=== PATIENT | female | born 1950 | race African-American/Black ===

== ENCOUNTER 2016-12-27 16:58 | Inpatient (IN) ==
--- NOTE | 2016-12-27 17:20 | EKG Report ---
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
[2016-12-27] MEDS ORDERED: ENOXAPARIN 100 MG/ML SYRINGE SUBCUT STA (17:32)
[2016-12-27] MEDS ORDERED: ASPIRIN 325 MG TABLET PO STA (17:32)
[2016-12-27] MEDS ORDERED: NITROGLYCERIN SL 0.4 MG TABLET SL PRN (17:32)
[2016-12-27 17:44] LABS: Basophils % 0.5 % (0.0-0.8); Eosinophils # 0.1 10*3/uL (0.0-0.87); Eosinophils % 1.6 % (0.00-10.9); Hematocrit 41.4 VOL% (35.7-47.0); Hemoglobin 12.9 GM/DL (12.0-16.0); Immature Granulocytes % 0.4 %; Immature Granulocytes Absolute 0.03 #; Lymphocytes # 2.4 10*3/uL (1.4-4.0); Lymphocytes % 30.7 % (21.3-54.2); Mean Corpuscular HGB Conc 31.2 GM/DL (32-36); Mean Corpuscular Hemoglobin 26 PG (27-34); Mean Corpuscular Volume 82.5 FL (87-102); Monocytes # 0.5 10*3/uL (0.11-0.8); Monocytes % 6.6 % (1.7-12.7); Neutrophils # 4.7 10*3/uL (1.4-7.4); Neutrophils % 60.2 % (38.7-73.9); Platelet Count 259 T/CUMM (130-400); Red Blood Count 5.02 MC/CUMM (3.8-5.5); White Blood Count 7.9 T/CUMM (4-12)
[2016-12-27 17:50] LABS: PT Patient Result 10.7 SECS
[2016-12-27] MEDS ORDERED: ASPIRIN 325 MG TABLET ONE (17:51)
[2016-12-27] MEDS ORDERED: ENOXAPARIN 80 MG/0.8 ML SYRINGE SUBCUT ONE (17:51)
--- NOTE | 2016-12-27 18:00 | Emergency Department Note ---
Perla Queen Mantricia, am scribing for, and in the presence of, Pawel Durham MD 17:44. Marva Queen Phillip K, MD, personally performed the services described in this documentation, ascribed by Naveen Duncan in my presence, and it is both accurate and complete . Arrival - Arrival ED Nursing Triage Note: Tightness in chest onset x 3 days Mode of Arrival: Ambulatory Limitations: No Limitations Source: Patient - History of Present Illness Onset (ago): day(s) Consistency: constant Severity: moderate Severity scale (1-10): 3 Date of Last Menstrual Period: hyster <Pawel Durham - Last Filed: 12/27/16 18:00> <Victor Manuel Amos - Last Filed: 12/27/16 19:09> - Arrival Chief Complaint: Chest Pain Stated Complaint: chest pains Time Seen by Provider: 12/27/16 17:31 - History of Present Illness HPI Narrative: Pt is a 66 y/o black female arriving to ED by EMS with c/o tightness in chest that onset 3 days ago. She states that earlier Tuesday she lifted something over 10lbs and very late that night she started having chest pain. She reports taking a Tramadol and has had relief. Pt confirms vomiting Tuesday night but denies N/D. She has a PMHx of DM and states that she takes both the pill and insulin; she denies GA. She reports that she had a cardiac bypass [address] Pereira. 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 She complains of no other symptoms. (Naveen Duncan) Pt is a 66 y/o black female arriving to ED by EMS with c/o tightness in chest that onset 3 days ago. She states that earlier Tuesday she lifted something over 10lbs and very late that night she started having chest pain. She reports taking a Tramadol and has had relief. Pt confirms vomiting Tuesday night but denies N/D. She has a PMHx of DM and states that she takes both the pill and insulin; she denies GA. She reports that she had a cardiac bypass [address] Pereira. 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 Vigil. She complains of no other symptoms. (Pawel Durham) Allergies/Adverse Reactions: Allergies Allergy/AdvReac Type Severity Reaction Status Date / Time citalopram [From Celexa] AdvReac Vomiting Verified 01/21/16 17:11 hydrocodone [From Lortab] AdvReac Vomiting Verified 01/21/16 17:11 ropinirole [From Requip] AdvReac Vomiting Verified 01/21/16 17:11 Home Medications: Home Medications Medication Instructions Recorded Confirmed Type Aspirin [Ecotrin] 325 mg PO DAILY 01/21/16 12/27/16 History Calcium (Citr)/Vit D 200-125 1 tablet PO BID 01/21/16 12/27/16 History [Citracal + D] Furosemide Tab [Lasix Tab] 20 mg PO DAILY PRN 01/21/16 12/27/16 History Magnesium Oxide [Magox 400] 400 mg PO BID 01/21/16 12/27/16 History Pravastatin Sodium 40 mg PO BEDTIME 01/21/16 12/27/16 History glipiZIDE [Glipizide] 10 mg PO DAILY 01/21/16 12/27/16 History metFORMIN [Glucophage] 500 mg PO BID W/MEALS 01/21/16 12/27/16 History Nitroglycerin Sl Tab [Nitrostat] 0.4 mg SL Q5M PRN #25 tablet 01/22/16 12/27/16 Rx Carvedilol 3.125 mg PO BID 03/18/16 12/27/16 History amLODIPine [Norvasc] 10 mg PO DAILY #90 tablet 03/20/16 12/27/16 Rx Acetaminophen Tab [Tylenol Tab] 325 mg PO BID 12/27/16 12/27/16 History Ascorbic Acid [Vitamin C Chew Tab] 1,000 mg PO BID 12/27/16 12/27/16 History Gabapentin 600 mg PO BEDTIME 12/27/16 12/27/16 History Ipratropium/Albuterol Inhaler 1 puff INH BID PRN 12/27/16 12/27/16 History [Combivent Respimat Inhaler] Tramadol HCl [Tramadol Tab] 50 mg PO BID PRN 12/27/16 12/27/16 History Review of System - Review of System 12 point system: reviewed and no additional remarkable complaints except as stated - Review of System Constitutional: Absent: chills, diaphoresis, fever Eyes: Absent: discharge, pain Head/Ears/Nose/Throat: Absent: earache, epistaxis Respiratory: Present: cough. Absent: respiratory distress, wheezing Cardiovascular: Present: chest pain, dyspnea on exertion. Absent: palpitations Gastrointestinal: Present: vomiting. Absent: abdominal pain, nausea, diarrhea Genitourinary female: Absent: abnormal menses, dysuria Musculoskeletal: Absent: arm pain, back pain, leg pain, neck pain Skin: Absent: rash, lesions Neurological: Absent: headache, weakness Psychiatric: Absent: anxiety, depression <Pawel Durham - Last Filed: 12/27/16 18:00> Medical,Surgical,& Family Hx - Medical History Cardio: History of: Cerebrovascular Disease, CAD, Hypertension, Cardiovascular Problems (cad,cabg 2015 at [facility]) No history of: Aneurysm, Cardiac Dysrhythmia, GA, Pacemaker, PVD Psychological: No history of: ADHD, Behavior Problems, Depression, Previous Suicide Attempt , Psychiatric/Substance Abuse Tx, Schizophrenia, Violent Behavior, Psychiatric Problems Neurology: History of: Migraine, Peripheral Neuropathy No history of: Brain Aneurysm, Cerebrovascular Accident, Parkinson's Disease , Seizures, TIA, Vertigo, Neurologocal Cancer HEENT: History of: Eye Problem (glasses), HEENT Problems (SINUS SURGERY) No history of: Ear Problem, Dental Problems Endocrine: History of: Diabetes Mellitus (IDDM), Diabetes Mellitus (NIDDM), Dyslipidemia No history of: Thyroid Disorder, Endocrine Cancer, Endocrine Problems Rheumatology: History of;: Rheumatological Problems No history of;: Rheumatoid Arthritis, Sjogrens, Systemic Lupus Erythematosus Respiratory: History of: Asthma, Bronchitis, Intubation No history of: COPD, Obstructive Sleep Apnea, Pulmonary Hypertension, Pneumonia, Lung Cancer, Respiratory Problems Renal: No history of: Renal Failure Genitourinary: No history of: Bladder Problem, Genitourinary Cancer Gastrointestinal: No history of: Bowel Obstruction, Clostridium Difficile, GERD, Gastrointestinal Bleed, Hepatitis, Liver Problems, Gastrointestinal Cancer Musculoskeletal: No history of: Amputation, Back/Neck Problems, Musculoskeletal Problems Hematology: History of: Anemia No history of: Blood Transfusion Reaction, Clotting Problems, Sickle Cell Disease, Blood Disorders Other: No history of: Cancer, Eczema, HIV, Skin Problems, Miscellaneous Medical Problems - Surgical History Cardiac Surgeries: Sugical HX of: Cardiac Catheterization, Cardiac Surgery ( quadruple bypass in november 2014) Patient Denies: Femoral-Popliteal Bypass Graft, Carotid Endarterectomy, Internal Defibrillator, Vascular Access Devices Thoracic Surgeries: Patient denies;: Kidney (Renal Surgery), Lithotripsy, Nephrectomy, Organ Transplant, Lobectomy Neurologic Surgeries: Patient denies: Brain Aneurysm, Neurologic Surgery HEENT Surgeries: Patient denies: Carotid Endarterectomy, Eye Surgery, Thyroid Surgery, Tonsilectomy & Adenoidectomy Abdominal Surgeries: Surgical HX of: Colonoscopy Patient denies: Abdominal Surgery, Appendectomy, Cholecystectomy, Gastric Bypass Surgery, EGD, Hernia Repair, Splenectomy Reproductive Surgeries: Surgical HX of;: Breast Surgery (rt breast), Gynecologic Surgery (hyst), Hysterectomy Patient denies;: Section, Cystoscopy, Genitourinary Surgery - Family History Family History: Reports;: Family Cancer (MOTHER-LUNG CA), Family Diabetes ( FATHER, SIBLINGS), Family Heart Disease (MOTHER), Family Hypertension (MOTHER) - Social History Smoking Status: Former smoker Frequency of Alcohol Use: None Type of Drug Use: None <Pawel Durham - Last Filed: 12/27/16 18:00> Exam - General General appearance: alert, in no apparent distress - Head Head exam: Present: atraumatic, normocephalic, normal inspection - Eye Eye exam: Present: normal appearance, PERRL, EOMI - ENT ENT exam: Present: normal exam, normal oropharynx, mucous membranes moist, TM's normal bilaterally, normal external ear exam - Neck Neck exam: Present: normal inspection, full ROM, trachea midline. Absent: tenderness - Chest Chest inspection: Present: normal inspection, symmetric chest wall rise. Absent : tenderness - Respiratory Respiratory exam: Present: normal lung sounds bilaterally - Cardiovascular Cardiovascular exam: Present: normal rhythm, tachycardia, normal heart sounds - Abdominal Exam Abdominal exam: Present: soft, normal bowel sounds. Absent: distention, tenderness, guarding, rebound - Extremities Exam Extremities exam: Present: full ROM, normal capillary refill, pedal edema ( trace edema bilat). Absent: tenderness - Back Exam Back exam: Present: normal inspection, full ROM. Absent: tenderness - Neurological Exam Neurological exam: Present: alert, oriented X3, CN II-XII intact, normal gait, reflexes normal - Psychiatric Psychiatric exam: Present: normal affect, normal mood - Skin Skin exam: Present: warm, dry, intact, normal color <Pawel Durham - Last Filed: 12/27/16 18:00> Vital Signs: Vital Signs Temperature 98.2 F 12/27/16 18:11 Pulse Rate 93 H 12/27/16 18:50 Respiratory Rate 19 12/27/16 18:50 Blood Pressure 132/74 12/27/16 18:50 O2 Sat by Pulse Oximetry 100 12/27/16 18:50 Course <Pawel Durham - Last Filed: 12/27/16 18:00> <Victor Manuel Amos - Last Filed: 12/27/16 19:09> Course Narrative: ER course per Dr. Durham (Victor Manuel Amos) - Reevaluation(s) Reevaluation #1: Discussed with patient the fact that she is having daily exertional angina and increasing frequency with a history of recent bypass that she would best be served with hospitalization. (Victor Manuel Amos) - Consultations Consultation #1: Discussed with Dr. Ochoa who will admit for further evaluation treatment for Dr. Vigil. (Victor Manuel Amos) Results <Pawel Durham - Last Filed: 12/27/16 18:00> - Labs CBC & BMP: 12/27/16 17:23 12/27/16 17:23 - Diagnostic Findings Procedure: Chest x-ray: image reviewed by me, report reviewed by me (Status post median sternotomy otherwise normal chest) <Victor Manuel Amos - Last Filed: 12/27/16 19:09> - Labs Labs: I have reviewed the laboratory and noted the normal cardiac's. (Victor Manuel Amos ) - Impressions EKG: Sinus rhythm with normal WA interval and QRS duration. Right atrial enlargement. Old anterior GA. No acute injury pattern noted although suspicious inferior ST's. (Victor Manuel Amos) Disposition <Pawel Durham - Last Filed: 12/27/16 18:00> Case discussed with: patient, patient's family Time of Disposition: 19:09 <Victor Manuel Amos - Last Filed: 12/27/16 19:09> Clinical Impression: Progressive angina, Status post CABG, Diabetes 1.5, managed as type 2, Hyperlipidemia Disposition: Still a Patient Condition: Guarded
[2016-12-27 18:40] LABS: Albumin 3.9 G/DL (3.4-5.0); Bilirubin,Total 0.6 MG/DL (0.2-1.0); Calcium 9.6 MG/DL (8.5-10.1); Magnesium 2.1 MG/DL (1.8-2.4); Osmolality,Calculated 286.5 MOS/KG (273-304); Potassium 4.2 MMOL/L (3.5-5.1); Total Protein 7.5 G/DL (6.4-8.3)
--- NOTE | 2016-12-27 19:08 | XRay Report ---
Referring Physician: Pawel Durham Exam: XR chest 1V portable Date: December 27, 2016 at 5:49 PM Reason: Chest pain Comparison: Chest 2 views January 21, 2016 Findings: There is mild cardiomegaly and sternotomy change. There is minimal atelectasis or scarring at the lung bases. No pneumothorax or pleural effusion is identified. No acute osseous process is seen. Impression: 1. Cardiomegaly. 2. Minimal atelectasis or scarring at the lung bases. PROCEDURE INTERPRETED AT [facility] DEPARTMENT OF RADIOLOGY Final Report Signed by: Dr. Luigi Downey
[2016-12-27] MEDS ORDERED: ONDANSETRON 4 MG/2 ML VIAL IV PRN (19:11)
[2016-12-27] MEDS ORDERED: traMADol 50 MG TABLET PO PRN (19:17)
[2016-12-27] MEDS ORDERED: GLUCAGON 1 MG VIAL IM PRN (20:18)
[2016-12-27] MEDS ORDERED: DEXTROSE 50% 25 GM/50 ML VIAL IV PRN (20:18)
[2016-12-27] MEDS ORDERED: ISOSORBIDE DINITRATE 10 MG TABLET PO SCH (21:00)
[2016-12-27] MEDS ORDERED: PRAVASTATIN 40 MG TABLET PO SCH (21:00)
[2016-12-27] MEDS: INSULIN REGULAR 100 UNIT/ML SUBCUT SCH (21:34)
[2016-12-27] MEDS: ASCORBIC ACID 500 MG TABLET PO SCH (21:36)
[2016-12-27] MEDS: GABAPENTIN 300 MG CAPSULE PO SCH (21:36)
[2016-12-27] MEDS: metFORMIN 500 MG TABLET PO SCH (21:36)
[2016-12-27] MEDS: CARVEDILOL 3.125 MG TABLET PO SCH (21:36)
--- NOTE | 2016-12-28 06:44 | EKG Report ---
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
[2016-12-28] MEDS ORDERED: glipiZIDE 10 MG TABLET PO SCH ×2 (07:30→09:00)
--- NOTE | 2016-12-28 07:56 | EKG Report ---
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
[2016-12-28] MEDS ORDERED: ALBUTEROL/IPRATROPIUM 3 ML NEB RESP TX PRN (08:21)
[2016-12-28] MEDS ORDERED: FUROSEMIDE 20 MG TABLET PO PRN (08:21)
[2016-12-28] MEDS ORDERED: traMADol 50 MG TABLET PO PRN (08:21)
[2016-12-28] MEDS: INSULIN REGULAR 100 UNIT/ML SUBCUT SCH ×2 (08:46→12:57)
--- NOTE | 2016-12-28 08:53 | Cardiology History & Physical ---
<Sanjana May E - Last Filed: 12/28/16 08:24> Assessment and Plan - Time spent with patient Time spent with patient: Greater than 30 minutes (1) Dyslipidemia Status: Chronic Assessment and plan: SEE PLAN OF CARE LISTED BELOW Current Visit: Yes (2) Hx of CABG Status: Chronic Assessment and plan: SEE PLAN OF CARE LISTED BELOW Current Visit: Yes (3) Chest pain Status: Chronic Assessment and plan: SEE PLAN OF CARE LISTED BELOW Current Visit: No (4) CAD (coronary artery disease) Status: Chronic Assessment and plan: SEE PLAN OF CARE LISTED BELOW Current Visit: No (5) Chest wall pain Status: Chronic Assessment and plan: SEE PLAN OF CARE LISTED BELOW Current Visit: No (6) Hypertension Status: Chronic Assessment and plan: SEE PLAN OF CARE LISTED BELOW Current Visit: No Qualifiers: Hypertension type: essential hypertension Qualified Code(s): I10 - Essential (primary) hypertension (7) Diabetes 1.5, managed as type 2 Status: Chronic Assessment and plan: SEE PLAN OF CARE LISTED BELOW Current Visit: Yes History of Present Illness Chief complaint: Chest pain, known coronary artery disease History of present illness: MANAGER SHIFT: DR. VIGIL Ms. Alex, 66BF, routinely followed by Dr. Vigil. She was last seen in cardiology clinic November 30, 2016. Risk factors include: Known coronary artery disease (status post CABG 2014), hypertension, dyslipidemia, diabetes. History of post cardiotomy syndrome, chronic chest wall pain, thoracic aortic aneurysm. Patient presented to the emergency department at [facility] last evening after experiencing left chest pain. Tuesday, patient reports she lifted a heavy laundry basket when she began to experience this aching pain located in the left chest area. It does not radiate, cause shortness of breath, nausea or diaphoresis. This waxed and waned but yesterday began to hurt her more severely when she felt as if she should be evaluated. She received tramadol last evening and the discomfort has resolved. She denies dyspnea on exertion and in fact, reports that walking around last night improved the chest discomfort. Patient has a long-standing history of chest wall pain. She has avoided lifting heavy objects since her CABG because it has aggravated the chest wall. She states she recognized immediately after lifting the heavy laundry basket the discomfort. Cardiac biomarkers are negative, EKG is unremarkable. At this point, she takes Neurontin in the evening. We will make this a 3 times daily dosing for 1 month. Tramadol routinely twice daily for 1 week (not on an "as needed basis" as she takes right now), and Acetaminophen twice daily for one week. I will discuss with Dr. Ochoa this morning. Hopefully, patient will be eligible for discharge this afternoon. She would like to be discharged if possible. ASSESSMENT/PLAN: 1. CHEST PAIN - appears to be musculoskeletal in nature. Easily reproducible to light palpation. See above for plan to address the chest discomfort 2. KNOWN CAD S/P CABG 2014 - we will request records from [place] from prior cardiac catheterization and CABG by Dr. newton 3. HYPERTENSION - usually well controlled. Adjust medications accordingly during hospital stay 4. DYSLIPIDEMIA - continue lipid-lowering agent 5. DIABETES - continue her diabetic medications 6. COSTOCHONDRITIS - see plan of care listed above regarding treatment. 7. HISTORY OF THORACIC AORTIC ANEURYSM -this is listed in her history however I have no additional information regarding ascending versus descending. This is followed by Dr. Vigil. Carotid and radial pulses equal. Home Medications Medication Instructions Recorded Confirmed Type Aspirin [Ecotrin] 325 mg PO DAILY 01/21/16 12/27/16 History Calcium (Citr)/Vit D 200-125 1 tablet PO BID 01/21/16 12/27/16 History [Citracal + D] Furosemide Tab [Lasix Tab] 20 mg PO DAILY PRN 01/21/16 12/27/16 History Magnesium Oxide [Magox 400] 400 mg PO BID 01/21/16 12/27/16 History Pravastatin Sodium 40 mg PO BEDTIME 01/21/16 12/27/16 History glipiZIDE [Glipizide] 10 mg PO DAILY 01/21/16 12/27/16 History metFORMIN [Glucophage] 500 mg PO BID W/MEALS 01/21/16 12/27/16 History Nitroglycerin Sl Tab [Nitrostat] 0.4 mg SL Q5M PRN #25 tablet 01/22/16 12/27/16 Rx Carvedilol 3.125 mg PO BID 03/18/16 12/27/16 History amLODIPine [Norvasc] 10 mg PO DAILY #90 tablet 03/20/16 12/27/16 Rx Acetaminophen Tab [Tylenol Tab] 325 mg PO BID 12/27/16 12/27/16 History Ascorbic Acid [Vitamin C Chew Tab] 1,000 mg PO BID 12/27/16 12/27/16 History Gabapentin 600 mg PO BEDTIME 12/27/16 12/27/16 History Ipratropium/Albuterol Inhaler 1 puff INH BID PRN 12/27/16 12/27/16 History [Combivent Respimat Inhaler] Tramadol HCl [Tramadol Tab] 50 mg PO BID PRN 12/27/16 12/27/16 History Allergies Allergy/AdvReac Type Severity Reaction Status Date / Time citalopram [From Celexa] AdvReac Vomiting Verified 01/21/16 17:11 hydrocodone [From Lortab] AdvReac Vomiting Verified 01/21/16 17:11 ropinirole [From Requip] AdvReac Vomiting Verified 01/21/16 17:11 Review of systems: REVIEW OF SYSTEMS: - Constitutional Constitutional: Denies fatigue. Absent: syncope, anorexia, night sweats - EENT Eyes: Absent: blurry vision, loss of vision, diplopia Ears: Absent: decreased hearing, ear pain, ear discharge - Cardiovascular Cardiovascular: Present: chest pain to palpation. Denies dyspnea on exertion, edema, palpitations. Absent: chest pain with deep breath, claudication - Respiratory Respiratory: Denies: OHARA, cough. Absent: wheezing, hemoptysis, change in phlegm color - Gastrointestinal Gastrointestinal: Denies: constipation. Absent: abdominal pain, hematemesis, hematochezia, melena, change in bowel habits, nausea - Genitourinary Genitourinary: Absent: difficulty urinating, dysuria, urinary hesitancy, flank pain - Musculoskeletal Musculoskeletal: Present: back pain Absent: joint swelling, muscle cramps, muscle weakness - Neurological Neurological: Present: normal gait without frequent falls. Absent: dizziness, hemiparesis - Psychiatric Psychiatric: Absent: anxiety, depression, difficulty concentrating - Endocrine Endocrine: Absent: cold intolerance, heat intolerance, polyuria, polyphagia, polydipsia - Hematologic/Lymphatic Hematologic/Lymphatic: Present: easy bruising. Absent: easy bleeding -Integumentary Integumentary: Absent: lesions, rashes, skin breakdown Medical,Surgical,& Family Hx - Medical History Cardio: History of: Cerebrovascular Disease, CAD, Hypertension, Cardiovascular Problems (cad,cabg 2015 at [place]) No history of: Aneurysm, Cardiac Dysrhythmia, DC, Pacemaker, PVD Psychological: No history of: ADHD, Behavior Problems, Depression, Previous Suicide Attempt , Psychiatric/Substance Abuse Tx, Schizophrenia, Violent Behavior, Psychiatric Problems Neurology: History of: Migraine, Peripheral Neuropathy No history of: Brain Aneurysm, Cerebrovascular Accident, Parkinson's Disease , Seizures, TIA, Vertigo, Neurologocal Cancer HEENT: History of: Eye Problem (glasses), HEENT Problems (SINUS SURGERY) No history of: Ear Problem, Dental Problems Endocrine: History of: Diabetes Mellitus (IDDM), Diabetes Mellitus (NIDDM), Dyslipidemia No history of: Thyroid Disorder, Endocrine Cancer, Endocrine Problems Rheumatology: History of;: Rheumatological Problems No history of;: Rheumatoid Arthritis, Sjogrens, Systemic Lupus Erythematosus Respiratory: History of: Asthma, Bronchitis, Intubation No history of: COPD, Obstructive Sleep Apnea, Pulmonary Hypertension, Pneumonia, Lung Cancer, Respiratory Problems Renal: No history of: Renal Failure Genitourinary: No history of: Bladder Problem, Genitourinary Cancer Gastrointestinal: No history of: Bowel Obstruction, Clostridium Difficile, GERD, Gastrointestinal Bleed, Hepatitis, Liver Problems, Gastrointestinal Cancer Musculoskeletal: No history of: Amputation, Back/Neck Problems, Musculoskeletal Problems Hematology: History of: Anemia No history of: Blood Transfusion Reaction, Clotting Problems, Sickle Cell Disease, Blood Disorders Other: No history of: Cancer, Eczema, HIV, Skin Problems, Miscellaneous Medical Problems - Surgical History Cardiac Surgeries: Sugical HX of: Cardiac Catheterization, Cardiac Surgery ( quadruple bypass in november 2014) Patient Denies: Femoral-Popliteal Bypass Graft, Carotid Endarterectomy, Internal Defibrillator, Vascular Access Devices Thoracic Surgeries: Patient denies;: Kidney (Renal Surgery), Lithotripsy, Nephrectomy, Organ Transplant, Lobectomy Neurologic Surgeries: Patient denies: Brain Aneurysm, Neurologic Surgery HEENT Surgeries: Patient denies: Carotid Endarterectomy, Eye Surgery, Thyroid Surgery, Tonsilectomy & Adenoidectomy Abdominal Surgeries: Surgical HX of: Colonoscopy Patient denies: Abdominal Surgery, Appendectomy, Cholecystectomy, Gastric Bypass Surgery, EGD, Hernia Repair, Splenectomy Reproductive Surgeries: Surgical HX of;: Breast Surgery (rt breast), Gynecologic Surgery (hyst), Hysterectomy Patient denies;: Section, Cystoscopy, Genitourinary Surgery - Family History Family History: Reports;: Family Cancer (MOTHER-LUNG CA), Family Diabetes ( FATHER, SIBLINGS), Family Heart Disease (MOTHER), Family Hypertension (MOTHER) - Social History Smoking Status: Former smoker Have you smoked in the last 12 months: No Frequency of Alcohol Use: None Type of Drug Use: None Marital Status: Lives With:: Spouse Functional capacity: independent ambulation Cardiology Physical Exam - Constitutional Vitals: Vital Signs Temp Pulse Resp BP Pulse Ox 97.5 F L 81 18 112/68 95 12/28/16 07:30 12/28/16 07:30 12/28/16 07:30 12/28/16 07:30 12/28/16 07:30 Intake and Output 12/27/16 12/28/16 12/28/16 23:59 07:59 15:59 Intake Total 240 / 240 0 / 0 Balance 240 / 240 0 / 0 Intake: Oral 240 / 240 0 / 0 Other: Voiding Method Toilet Toilet # Voids 1 2 Weight 70.307 kg 69.031 kg Patient Weight 12/28/16 23:59 Weight 69.031 kg General: [Appears well with no apparent distress.] [Pleasant and cooperative. ] [Appears comfortable.] HEENT: [PERRL, normocephalic, atraumatic. Mucous membranes moist. No jaundice noted. Conjunctiva moist and clear, sclerae anicteric] Neck: No JVD/HJR, no thyromegaly or lymphadenopathy noted. No carotid bruit appreciated Cardiac: [Regular rate and rhythm.] [No murmur, rub or gallop.] Left chest area tender to palpation. Lungs: [Clear to auscultation without accessory muscle use to assist the respiratory pattern.] Not requiring oxygen Abdomen: Soft, bowel sounds normoactive. Nontender and nondistended. No abdominal bruit or thrill noted. No masses noted. Musculoskeletal: No fluid collection. Decreased range of motion is noted. Extremities: No clubbing, cyanosis noted. [ No edema noted.] Upper extremity pulses 2+. Lower extremity pulses 2+. Capillary refill less than 3 seconds. Skin: No unusual lesions or rashes. No skin breakdown appreciated. Neuro: Awake, alert and oriented 3. Moves all extremities well without hemiparesis or paralysis. No essential tremor is appreciated. Result/EKG - Labs CBC & BMP: 12/27/16 17:23 12/27/16 17:23 Lab Results: I have reviewed the past 24 hour labs Labs: Laboratory Results - last 24 hr 12/27/16 12/27/16 12/28/16 21:02 23:56 07:13 POC Glucose 199 H Troponin I < 0.015 < 0.015 - Diagnostic Findings Procedure: Chest x-ray: report reviewed by me - EKG EKG results: interpreted by me EKG shows: sinus rhythm <Geovani Ochoa - Last Filed: 12/28/16 10:24> History of Present Illness History of present illness: Patient personally reviewed and examined by myself and chart reviewed. I discussed the case with Sanjana May NP. I agree with the assessment and evaluation and examination. In addition and summation Ms. Alex is a 66 year old female who has known coronary disease having bypass surgery previously. She has chronic recurrent chest wall pain. She presents having several days of chest pain specifically since this past Tuesday. Tuesday she was lifting some heavy furniture which she typically does not do an avoided secondary to precipitating chest wall pain. Tuesday she began having chest wall pain is really been persistent. She presented the emergency room with this pain and discomfort having chest wall tenderness, which is chronic. Her ECG was normal without any evidence of ischemic changes, her troponin has been completely normal and nondetectable. She is having no pain since receiving pain medications. She usually takes tramadol at home but has not used nitroglycerin for this pain when it develops. Evaluation does not reveal any evidence for an ischemic event. Agree with this patient's findings were typical for her chest wall pain and not ischemic in needs no further evaluation. Be discharged. Cardiology Physical Exam - Constitutional Vitals: Vital Signs Temp Pulse Resp BP Pulse Ox 97.5 F L 81 18 112/68 95 12/28/16 07:30 12/28/16 07:30 12/28/16 07:30 12/28/16 07:30 12/28/16 07:30 Intake and Output 12/27/16 12/28/16 12/28/16 23:59 07:59 15:59 Intake Total 240 / 240 0 / 0 Balance 240 / 240 0 / 0 Intake: Oral 240 / 240 0 / 0 Other: Voiding Method Toilet Toilet # Voids 1 2 Weight 70.307 kg 69.031 kg Patient Weight 12/28/16 23:59 Weight 69.031 kg Exam: I agree with the examination.. She has no pathology noted on her examination. The has chest wall tenderness that reproduces her chest pain. Result/EKG - Labs CBC & BMP: 12/27/16 17:23 12/27/16 17:23 Labs: Laboratory Results - last 24 hr 12/27/16 12/27/16 12/28/16 21:02 23:56 07:13 POC Glucose 199 H Troponin I < 0.015 < 0.015
[2016-12-28] MEDS ORDERED: PANTOPRAZOLE 40 MG TABLET PO SCH (09:00)
[2016-12-28] MEDS ORDERED: ASPIRIN 325 MG TABLET PO SCH (09:00)
[2016-12-28] MEDS ORDERED: amLODIPine 10 MG TABLET PO SCH (09:00)
[2016-12-28] MEDS ORDERED: MAGNESIUM OXIDE 400 MG TABLET PO SCH (09:00)
[2016-12-28] MEDS ORDERED: traMADol 50 MG TABLET PO SCH (09:00)
[2016-12-28] MEDS ORDERED: ASCORBIC ACID 500 MG TABLET PO SCH (09:00)
[2016-12-28] MEDS ORDERED: CALCIUM (CITRATE)/VITAMIN D 200 MG-125 UNIT TABLET PO SCH (09:00)
[2016-12-28] MEDS ORDERED: CARVEDILOL 6.25 MG TABLET PO SCH (09:00)
[2016-12-28] MEDS ORDERED: FUROSEMIDE 20 MG TABLET PO SCH (09:00)
[2016-12-28] MEDS ORDERED: ACETAMINOPHEN 325 MG TABLET PO SCH (09:00)
[2016-12-28] MEDS ORDERED: ASPIRIN EC 325 MG TABLET PO SCH (09:00)
[2016-12-28] MEDS: metFORMIN 500 MG TABLET PO SCH (09:24)
[2016-12-28] MEDS: ASCORBIC ACID 500 MG TABLET PO SCH (09:27)
[2016-12-28] MEDS: CARVEDILOL 3.125 MG TABLET PO SCH (09:30)
[2016-12-28] MEDS: GABAPENTIN 300 MG CAPSULE PO SCH (09:30)
--- NOTE | 2016-12-28 11:07 | Discharge Summary ---
<Sanjana May E - Last Filed: 12/28/16 11:08> Hospital Course - Hospital Course Hospital Course: DRUG CLERK: DR. VIGIL Ms. Alex, 66BF, routinely followed by Dr. Vigil. She was last seen in cardiology clinic November 30, 2016. Risk factors include: Known coronary artery disease (status post CABG 2014), hypertension, dyslipidemia, diabetes. History of post cardiotomy syndrome, chronic chest wall pain, thoracic aortic aneurysm. Patient presented [facility] the emergency [facility] at [facility] December 27, 2016 with chest pain after lifting heavy basket of laundry. Chest pain was reproducible to palpation left chest area. Walking improved the discomfort. Tramadol relieved the discomfort. CIEs negative. EKG was unremarkable. After being seen and evaluated, patient was anxious for release home. She is being discharged home in stable condition. She will resume all of her preadmission medications. New medications will include the following: Acetaminophen 325 mg's orally twice daily 1 week Tramadol 50 mg orally twice daily 1 week Neurontin 100 mg orally 3 times daily until seen by Dr. Vigil. Neurontin 600 mg orally each evening has been discontinued. She is being given a follow-up appointment with Dr. Vigil in approximately 6 weeks. May want to consider pain management referral if chest pain continues. SHE WILL CONTINUE ECASA 325MG ORALLY DAILY - Time spent with patient Time with patient DS: Greater than 30 minutes Diagnosis - Discharge Diagnosis (1) Dyslipidemia Status: Chronic (2) Hx of CABG Status: Chronic (3) Chest pain Status: Chronic (4) CAD (coronary artery disease) Status: Chronic (5) Chest wall pain Status: Chronic (6) Hypertension Status: Chronic (7) Diabetes 1.5, managed as type 2 Status: Chronic Specialty Discharge - Follow Up or Referrals Follow up with: Stan Vigil MD [Physician] - 02/08/17 9:00 am (6 weeks. ) Discharge Plan - Discharge Data Disposition: Disch To Home/Self Care Condition at Discharge: Stable Discharge Diet: heart healthy Activity: resume usual activities as tolerated Hygiene: no restrictions Weight Bearing at Discharge: full weight bearing Driving: no restrictions Contact your physician if you experience:: fever over 101, Difficulty voiding, Redness or swelling, Nausea/Vomiting, Shortness of breath, Bleeding, pain uncontrolled by pain medications - Discharge Medications New [place]apentin Cap/Tab [Neurontin Cap/Tab] 300 mg PO TID #84 capsule Continue Calcium (Citr)/Vit D 200-125 [Citracal + D] 1 tablet PO BID glipiZIDE [Glipizide] 10 mg PO DAILY Pravastatin Sodium 40 mg PO BEDTIME metFORMIN [Glucophage] 500 mg PO BID W/MEALS Magnesium Oxide [Magox 400] 400 mg PO BID Furosemide Tab [Lasix Tab] 20 mg PO DAILY PRN PRN Reason: CHF Nitroglycerin Sl Tab [Nitrostat] 0.4 mg SL Q5M PRN #25 tablet PRN Reason: Chest Pain Carvedilol 3.125 mg PO BID amLODIPine [Norvasc] 10 mg PO DAILY #90 tablet Ipratropium/Albuterol Inhaler [Combivent Respimat Inhaler] 1 puff INH BID PRN PRN Reason: Shortness Of Breath Acetaminophen Tab [Tylenol Tab] 325 mg PO BID #14 bottle Ascorbic Acid [Vitamin C Chew Tab] 1,000 mg PO BID Tramadol HCl [Tramadol Tab] 50 mg PO BID PRN PRN Reason: Pain Discontinued Aspirin [Ecotrin] 325 mg PO DAILY Gabapentin 600 mg PO BEDTIME No Action Aspirin EC Tab 325 mg PO DAILY - Follow Up or Referral Follow Up: Stan Vigil MD [Physician] - 02/08/17 9:00 am (6 weeks. ) - Forms/Instructions Additional Discharge Instructions: Please have patient continue the ECASA 325MG ORALLY DAILY ( I accidentally discontinued but she DOES need to continue). THanks Exam - Constitutional Vitals: Period Temp Pulse Resp BP Sys/Giron Pulse Ox Last 24 Hr 97.4 F-98.4 F 79-98 18-22 112-154/63-89 94-100 Exam: General: [Appears well with no apparent distress.] [Pleasant and cooperative. ] [Appears comfortable.] HEENT: [PERRL, normocephalic, atraumatic. Mucous membranes moist. No jaundice noted. Conjunctiva moist and clear, sclerae anicteric] Neck: No JVD/HJR, no thyromegaly or lymphadenopathy noted. No carotid bruit appreciated Cardiac: [Regular rate and rhythm.] [No murmur rub or gallop.] Left chest tender to palpation. Lungs: [Clear to auscultation without accessory muscle use to assist the respiratory pattern.] Not requiring oxygen Abdomen: Soft, bowel sounds normoactive. Nontender and nondistended. No abdominal bruit or thrill noted. No masses noted. Musculoskeletal: No fluid collection. Decreased range of motion is noted. Extremities: No clubbing, cyanosis noted. [ No edema noted.] Upper extremity pulses 2+. Lower extremity pulses 2+. Capillary refill less than 3 seconds. Skin: No unusual lesions or rashes. No skin breakdown appreciated. Neuro: Awake, alert and oriented 3. Moves all extremities well without hemiparesis or paralysis. No essential tremor is appreciated. Discharge Results Labs on day of discharge: Labs from last 24 hours 12/28/16 12/28/16 12/27/16 11:23 07:13 23:56 POC Glucose 239 H 199 H Troponin I < 0.015 12/27/16 21:02 POC Glucose Troponin I < 0.015 - Imaging and Cardiology Procedure: Chest x-ray: report reviewed by me DS: Provider Date of admission: 12/27/16 19:09 Primary care physician: Luis Antonio Amin DO Attending physician on admission: Stan Vigil MD Discharging clinician: Sanjana May NP Expected date of discharge: 12/28/16 <Geovani Ochoa - Last Filed: 12/28/16 15:16> Hospital Course - Hospital Course Hospital Course: The patient again interviewed and examined he has noncardiac chest pain. Her cardiac enzymes are negative is noted. No further cardiac evaluation needed. She will be discharged follow-up as a outpatient with Dr. Stan Vigil.
[2016-12-28 11:40] VITALS: BP 129/65
[2016-12-28] MEDS ORDERED: metFORMIN 500 MG TABLET PO SCH (17:00)
[2016-12-28] MEDS ORDERED: PRAVASTATIN 40 MG TABLET PO SCH (21:00)
[2016-12-28] MEDS ORDERED: GABAPENTIN 300 MG CAPSULE PO SCH (21:00)
== END 2016-12-28 12:59 | disposition home or self-care (01) | DRG 313 ==
LOC: N.ED 16:58 → N.EDINP 19:09 → N.TELES 19:09
PROVIDERS: ADMIT Internal Medicine Cardiovascular Disease; ATTEND Internal Medicine Cardiovascular Disease

== ENCOUNTER 2017-02-14 11:03 | Inpatient (IN) ==
[2017-02-14] MEDS ORDERED: ONDANSETRON 4 MG/2 ML VIAL IV PRN (11:25)
[2017-02-14 12:36] LABS: Basophils % 0.1 % (0.0-0.8); Eosinophils # 0.1 10*3/uL (0.0-0.87); Eosinophils % 0.3 % (0.00-10.9); Hemoglobin 13.2 GM/DL (12.0-16.0); Immature Granulocytes % 1.6 %; Immature Granulocytes Absolute 0.25 #; Lymphocytes # 3.2 10*3/uL (1.4-4.0); Lymphocytes % 20.5 % (21.3-54.2); Mean Corpuscular HGB Conc 32.2 GM/DL (32-36); Mean Corpuscular Hemoglobin 26 PG (27-34); Mean Corpuscular Volume 80.6 FL (87-102); Mean Platelet Volume 9.4 FL (9.6-12.0); Monocytes # 1.1 10*3/uL (0.11-0.8); Neutrophils # 10.8 10*3/uL (1.4-7.4); Neutrophils % 70.5 % (38.7-73.9); Platelet Count 374 T/CUMM (130-400); Red Blood Count 5.09 MC/CUMM (3.8-5.5); Red Cell Distribution Width 13.9 % (9.3-17.3); White Blood Count 15.4 T/CUMM (4-12)
[2017-02-14] MEDS ORDERED: methylPREDNISolone SOD SUC 40 MG/1 ML VIAL IM SCH (13:00)
[2017-02-14] MEDS ORDERED: methylPREDNISolone SOD SUC 40 MG/1 ML VIAL IV SCH (13:00)
[2017-02-14 13:05] LABS: Albumin 3.5 G/DL (3.4-5.0); Bilirubin,Total 0.8 MG/DL (0.2-1.0); Calcium 9.4 MG/DL (8.5-10.1); Magnesium 2.4 MG/DL (1.8-2.4); Osmolality,Calculated 285.4 MOS/KG (273-304); Potassium 4.3 MMOL/L (3.5-5.1); Total Protein 7.1 G/DL (6.4-8.3)
[2017-02-14] MEDS ORDERED: NITROGLYCERIN SL 0.4 MG TABLET SL PRN (13:33)
[2017-02-14] MEDS: SODIUM CHLORIDE 0.45% 1,000 ML IV SCH ×2 (14:15→23:28)
[2017-02-14] MEDS: LEVOFLOXACIN INJ 500 MG in PREMIX 1 EACH IV SCH (14:15)
[2017-02-14] MEDS: ALBUTEROL/IPRATROPIUM 3 ML NEB RESP TX SCH ×2 (14:16→19:00)
[2017-02-14] MEDS: methylPREDNISolone SOD SUC 40 MG/1 ML VIAL IV SCH ×2 (14:26→23:30)
--- NOTE | 2017-02-14 15:57 | XRay Report ---
XR chest 2V Date: 02/14/2017 11:33 AM History: Shortness of breath Comparison: 12/27/2016 Technique: PA and lateral chest Findings: The heart is smaller in size in patient with prior median sternotomy. Chronic scarring in the lungs with minimally progressive atelectasis. Stable mediastinum with degenerative changes. Impression: COPD with chronic scarring in patient with prior median sternotomy. Progressive atelectasis. PROCEDURE INTERPRETED AT [facility] DEPARTMENT OF RADIOLOGY Final Report Signed by: Dr. Briana Villegas
[2017-02-14] MEDS: CARVEDILOL 3.125 MG TABLET PO SCH ×2 (16:07→21:05)
[2017-02-14] MEDS: amLODIPine 10 MG TABLET PO SCH (16:07)
[2017-02-14] MEDS: GABAPENTIN 300 MG CAPSULE PO SCH ×2 (16:07→21:05)
[2017-02-14] MEDS: glipiZIDE 10 MG TABLET PO SCH (16:07)
[2017-02-14] MEDS: CALCIUM (CITRATE)/VITAMIN D 200 MG-125 UNIT TABLET PO SCH ×2 (16:07→21:04)
[2017-02-14] MEDS: INSULIN LISPRO 100 UNIT/ML SUBCUT SCH ×2 (17:26→23:41)
[2017-02-14] MEDS: metFORMIN 500 MG TABLET PO SCH (17:26)
--- NOTE | 2017-02-14 18:17 | Family Practice History&Phys ---
Assessment and Plan (1) exacerbation of COPD Status: Acute Assessment and plan: Patient has failed outpatient therapy. Will admit for aggressive evaluation and treatment Current Visit: Yes (2) type 2 diabetes mellitus Status: Chronic Assessment and plan: Stable on present medications. We'll start on sliding scale Current Visit: Yes (3) Hx of CABG Status: Chronic Assessment and plan: Stable on present medications Current Visit: No (4) CAD (coronary artery disease) Status: Chronic Assessment and plan: Stable on present medications Current Visit: No (5) Dyslipidemia Status: Chronic Assessment and plan: Stable on present treatment plan Current Visit: No (6) Hypertension Status: Chronic Assessment and plan: Stable on present treatment plan Current Visit: No Qualifiers: Hypertension type: essential hypertension Qualified Code(s): I10 - Essential (primary) hypertension (7) polyneuropathy Status: Chronic Assessment and plan: Stable at present Current Visit: Yes History of Present Illness Chief complaint: progressive dyspnea History of present illness: Ms. Alex is a 66 year old female Patient is a 66-year-old black female known to me who is at a 7-10 day history of progressive cough and congestion fever or wheezing and shortness of breath. She was seen by me last week and started on multiple meds with no improvement. Patient unable to sleep eat or rest at present. Patient is on multiple medications for bronchospasm. Symptoms have progressively gotten worse. Patient seen in clinic and noted to be short of breath. She had decreased breath sounds with wheezing in all lung silvestre. In view of history will admit for further evaluation and therapy Home Medications Medication Instructions Recorded Confirmed Type Calcium (Citr)/Vit D 200-125 1 tablet PO BID 01/21/16 02/14/17 History [Citracal + D] Furosemide Tab [Lasix Tab] 20 mg PO DAILY PRN 01/21/16 02/14/17 History Magnesium Oxide [Magox 400] 400 mg PO BID 01/21/16 02/14/17 History Pravastatin Sodium 40 mg PO BEDTIME 01/21/16 02/14/17 History glipiZIDE [Glipizide] 10 mg PO DAILY 01/21/16 02/14/17 History metFORMIN [Glucophage] 500 mg PO BID W/MEALS 01/21/16 02/14/17 History Nitroglycerin Sl Tab [Nitrostat] 0.4 mg SL Q5M PRN #25 tablet 01/22/16 02/14/17 Rx Carvedilol 3.125 mg PO BID 03/18/16 02/14/17 History amLODIPine [Norvasc] 10 mg PO DAILY #90 tablet 03/20/16 02/14/17 Rx Ascorbic Acid [Vitamin C Chew Tab] 1,000 mg PO BID 12/27/16 02/14/17 History Ipratropium/Albuterol Inhaler 1 puff INH BID PRN 12/27/16 02/14/17 History [Combivent Respimat Inhaler] Tramadol HCl [Tramadol Tab] 50 mg PO BID PRN 12/27/16 02/14/17 History Acetaminophen Tab [Tylenol Tab] 325 mg PO BID #14 bottle 12/28/16 02/14/17 Rx Aspirin EC Tab 325 mg PO DAILY 12/28/16 02/14/17 History Gabapentin 300 mg PO TID 02/14/17 02/14/17 History Allergies Allergy/AdvReac Type Severity Reaction Status Date / Time citalopram [From Celexa] AdvReac Vomiting Verified 01/21/16 17:11 hydrocodone [From Lortab] AdvReac Vomiting Verified 01/21/16 17:11 ropinirole [From Requip] AdvReac Vomiting Verified 01/21/16 17:11 Medical,Surgical,& Family Hx - Medical History Cardio: History of: Cerebrovascular Disease, CAD, Hypertension, Cardiovascular Problems (cad,cabg 2015 at [facility]) No history of: Aneurysm, Cardiac Dysrhythmia, [place], Pacemaker, PVD Psychological: No history of: ADHD, Behavior Problems, Depression, Previous Suicide Attempt , Psychiatric/Substance Abuse Tx, Schizophrenia, Violent Behavior, Psychiatric Problems Neurology: History of: Migraine, Peripheral Neuropathy No history of: Brain Aneurysm, Cerebrovascular Accident, Parkinson's Disease , Seizures, TIA, Vertigo, Neurologocal Cancer HEENT: History of: Eye Problem (glasses), HEENT Problems (SINUS SURGERY) No history of: Ear Problem, Dental Problems Endocrine: History of: Diabetes Mellitus (NIDDM), Dyslipidemia No history of: Diabetes Mellitus (IDDM), Thyroid Disorder, Endocrine Cancer, Endocrine Problems Rheumatology: History of;: Rheumatological Problems No history of;: Rheumatoid Arthritis, Sjogrens, Systemic Lupus Erythematosus Respiratory: History of: Bronchitis, COPD No history of: Asthma, Intubation, Obstructive Sleep Apnea, Pulmonary Hypertension, Pneumonia, Lung Cancer, Respiratory Problems Renal: No history of: Renal Failure Genitourinary: No history of: Bladder Problem, Genitourinary Cancer Gastrointestinal: No history of: Bowel Obstruction, Clostridium Difficile, GERD, Gastrointestinal Bleed, Hepatitis, Liver Problems, Gastrointestinal Cancer Musculoskeletal: No history of: Amputation, Back/Neck Problems, Musculoskeletal Problems Hematology: History of: Anemia No history of: Blood Transfusion Reaction, Clotting Problems, Sickle Cell Disease, Blood Disorders Other: No history of: Cancer, Eczema, HIV, Skin Problems, Miscellaneous Medical Problems - Surgical History Cardiac Surgeries: Sugical HX of: Cardiac Catheterization, Cardiac Surgery ( quadruple bypass in november 2014) Patient Denies: Femoral-Popliteal Bypass Graft, Carotid Endarterectomy, Internal Defibrillator, Vascular Access Devices Thoracic Surgeries: Patient denies;: Kidney (Renal Surgery), Lithotripsy, Nephrectomy, Organ Transplant, Lobectomy Neurologic Surgeries: Patient denies: Brain Aneurysm, Neurologic Surgery HEENT Surgeries: Patient denies: Carotid Endarterectomy, Eye Surgery, Thyroid Surgery, Tonsilectomy & Adenoidectomy Abdominal Surgeries: Surgical HX of: Colonoscopy Patient denies: Abdominal Surgery, Appendectomy, Cholecystectomy, Gastric Bypass Surgery, EGD, Hernia Repair, Splenectomy Reproductive Surgeries: Surgical HX of;: Breast Surgery (rt breast), Gynecologic Surgery (hyst), Hysterectomy Patient denies;: Section, Cystoscopy, Genitourinary Surgery Orthopedic Surgeries: Surgical HX of;: Orthopedic Surgery (arthroscopic knee surgery) - Family History Family History: Reports;: Family Cancer (MOTHER-LUNG CA), Family Heart Disease ( MOTHER), Family Hypertension (MOTHER) Denies;: Family Diabetes - Social History Smoking Status: Former smoker Have you smoked in the last 12 months: No Frequency of Alcohol Use: None Type of Drug Use: None Marital Status: Lives With:: Spouse Functional capacity: independent ambulation Exam - Constitutional Vitals: Period Temp Pulse Resp BP Sys/Giron Pulse Ox Last 24 Hr 97.3 F-98.3 F 86-92 17-20 130-133/68-73 95-97 - Head Head exam: Present: normal inspection - Eye Pupils: Present: TORI - ENT ENT exam: Present: normal exam - Neck Neck exam: Present: normal inspection - Respiratory Respiratory exam: Present: decreased breath sounds, wheezes - Cardiovascular Cardiovascular exam: Present: tachycardia - GI/Abdominal GI/Abdominal exam: Present: normal bowel sounds, soft - Extremities Exam Extremities exam: Present: normal inspection - Back Exam Back exam: Present: normal inspection - Neurological Exam Neurological exam: Present: alert, oriented X3 - Psychiatric Psychiatric exam: Present: normal affect - Skin Skin exam: Present: normal color Results - Labs CBC & BMP: 02/14/17 12:13 02/14/17 12:13
[2017-02-14 18:36] LABS: Apearance,Urine CLEAR (Clear); Bilirubin,Urine Negative (Negative); Blood, Urine Negative (Negative); Glucose,Urine (UA) Negative (Negative); Ketones,Urine 20 mg/dL (Negative); Mucus,Urine Occasional /LPF (Occasional); Nitrite,Urine Negative (Negative); Protein,Urine Negative; RBC,Urine 4 /HPF (0-4); Squamous Epithelial Cell,Urine Occasional /HPF (0-10); Urine Color Yellow (Yellow); Urine Specific Gravity 1.018 (1.001-1.035); Urine Urobilinogen < 2.0 EU/DL (0.2-1.0); WBC,Urine 1 /HPF (0-6)
[2017-02-14] MEDS: ASCORBIC ACID 500 MG TABLET PO SCH (21:04)
[2017-02-14] MEDS: MAGNESIUM OXIDE 400 MG TABLET PO SCH (21:04)
[2017-02-14] MEDS: PRAVASTATIN 40 MG TABLET PO SCH (21:05)
[2017-02-14] MEDS: DOCUSATE SODIUM 100 MG CAPSULE PO SCH (21:06)
[2017-02-14] MEDS: traMADol 50 MG TABLET PO PRN (23:32)
[2017-02-15] MEDS: ALBUTEROL/IPRATROPIUM 3 ML NEB RESP TX SCH ×6 (00:40→18:52)
[2017-02-15 05:14] LABS: Hematocrit 34.8 VOL% (35.7-47.0); Hemoglobin 11.3 GM/DL (12.0-16.0); White Blood Count 14.8 T/CUMM (4-12)
[2017-02-15 05:15] LABS: Basophils % 0.1 % (0.0-0.8); Immature Granulocytes % 1.2 %; Immature Granulocytes Absolute 0.17 #; Lymphocytes # 1.4 10*3/uL (1.4-4.0); Lymphocytes % 9.3 % (21.3-54.2); Mean Corpuscular HGB Conc 32.5 GM/DL (32-36); Mean Corpuscular Hemoglobin 26 PG (27-34); Mean Corpuscular Volume 80.9 FL (87-102); Mean Platelet Volume 9.6 FL (9.6-12.0); Monocytes # 0.2 10*3/uL (0.11-0.8); Monocytes % 1.6 % (1.7-12.7); Neutrophils % 87.8 % (38.7-73.9); Platelet Count 330 T/CUMM (130-400); Red Cell Distribution Width 13.6 % (9.3-17.3)
[2017-02-15 05:49] LABS: Calcium 8.8 MG/DL (8.5-10.1); Osmolality,Calculated 286.1 MOS/KG (273-304); Potassium 4.2 MMOL/L (3.5-5.1)
[2017-02-15 06:11] LABS: Risk Ratio 2.03
[2017-02-15] MEDS: SODIUM CHLORIDE 0.45% 1,000 ML IV SCH ×2 (07:27→17:40)
--- NOTE | 2017-02-15 07:51 | Family Practice Progress Note ---
Family Practice - PN: Subj Interval history: Patient states that she rested better still has moderate cough and dyspnea but definitely is improved. Is much less wheezing with good airflow in the lungs bilaterally. Labs are stable except blood sugars have been elevated from steroids. Have changed sliding scale to a higher level. Denies any other associated complaints. Remainder of physical exam is stable. We will continue present treatment plan Exam (Progress Note) - Constitutional Vitals: Period Temp Pulse Resp BP Sys/Giron Pulse Ox Last 24 Hr 97.1 F-98.3 F 81-92 17-20 124-133/66-73 95-100 Results - Labs CBC & BMP: 02/15/17 04:21 02/15/17 04:21 Assessment and Plan (1) exacerbation of COPD Status: Acute Assessment and plan: Patient has failed outpatient therapy. Will admit for aggressive evaluation and treatment Current Visit: Yes (2) type 2 diabetes mellitus Status: Chronic Assessment and plan: Stable on present medications. We'll start on sliding scale Current Visit: Yes (3) Hx of CABG Status: Chronic Assessment and plan: Stable on present medications Current Visit: No (4) CAD (coronary artery disease) Status: Chronic Assessment and plan: Stable on present medications Current Visit: No (5) Dyslipidemia Status: Chronic Assessment and plan: Stable on present treatment plan Current Visit: No (6) Hypertension Status: Chronic Assessment and plan: Stable on present treatment plan Current Visit: No Qualifiers: Hypertension type: essential hypertension Qualified Code(s): I10 - Essential (primary) hypertension (7) polyneuropathy Status: Chronic Assessment and plan: Stable at present Current Visit: Yes
[2017-02-15] MEDS: methylPREDNISolone SOD SUC 40 MG/1 ML VIAL IV SCH ×2 (10:21→17:42)
[2017-02-15] MEDS: LEVOFLOXACIN INJ 500 MG in PREMIX 1 EACH IV SCH (10:21)
[2017-02-15] MEDS: CALCIUM (CITRATE)/VITAMIN D 200 MG-125 UNIT TABLET PO SCH ×2 (10:22→21:48)
[2017-02-15] MEDS: amLODIPine 10 MG TABLET PO SCH (10:22)
[2017-02-15] MEDS: ASCORBIC ACID 500 MG TABLET PO SCH ×2 (10:22→21:48)
[2017-02-15] MEDS: MAGNESIUM OXIDE 400 MG TABLET PO SCH ×2 (10:22→21:49)
[2017-02-15] MEDS: glipiZIDE 10 MG TABLET PO SCH (10:22)
[2017-02-15] MEDS: metFORMIN 500 MG TABLET PO SCH ×2 (10:23→17:38)
[2017-02-15] MEDS: DOCUSATE SODIUM 100 MG CAPSULE PO SCH ×2 (10:23→21:48)
[2017-02-15] MEDS: GABAPENTIN 300 MG CAPSULE PO SCH ×3 (10:23→21:49)
[2017-02-15] MEDS: ASPIRIN EC 325 MG TABLET PO SCH (10:23)
[2017-02-15] MEDS: INSULIN LISPRO 100 UNIT/ML SUBCUT SCH ×4 (10:23→21:57)
[2017-02-15] MEDS: PANTOPRAZOLE 40 MG TABLET PO SCH (10:23)
[2017-02-15] MEDS: CARVEDILOL 3.125 MG TABLET PO SCH ×2 (10:23→21:49)
[2017-02-15] MEDS: traMADol 50 MG TABLET PO PRN (17:37)
[2017-02-15] MEDS: PRAVASTATIN 40 MG TABLET PO SCH (21:49)
[2017-02-16] MEDS: traMADol 50 MG TABLET PO PRN ×2 (00:27→15:58)
[2017-02-16] MEDS: ALBUTEROL/IPRATROPIUM 3 ML NEB RESP TX SCH ×7 (00:45→23:56)
[2017-02-16] MEDS: methylPREDNISolone SOD SUC 40 MG/1 ML VIAL IV SCH ×3 (01:56→15:59)
[2017-02-16 06:07] LABS: Basophils % 0.1 % (0.0-0.8); Hematocrit 36.7 VOL% (35.7-47.0); Immature Granulocytes % 2.1 %; Immature Granulocytes Absolute 0.43 #; Lymphocytes # 1.2 10*3/uL (1.4-4.0); Lymphocytes % 6.1 % (21.3-54.2); Mean Corpuscular HGB Conc 32.7 GM/DL (32-36); Mean Corpuscular Hemoglobin 26 PG (27-34); Mean Corpuscular Volume 80.7 FL (87-102); Mean Platelet Volume 9.2 FL (9.6-12.0); Monocytes # 0.2 10*3/uL (0.11-0.8); Monocytes % 1.1 % (1.7-12.7); Neutrophils # 18.4 10*3/uL (1.4-7.4); Neutrophils % 90.6 % (38.7-73.9); Platelet Count 320 T/CUMM (130-400); Red Blood Count 4.55 MC/CUMM (3.8-5.5); Red Cell Distribution Width 13.9 % (9.3-17.3); White Blood Count 20.3 T/CUMM (4-12)
[2017-02-16 06:27] LABS: Burr Cells Slight; Hypochromasia 1+; Lymphocytes 2 % (20-55); Platelet Estimate Adequate; Segmented Neutrophils 97 % (50-85); Total Cells Counted 100
[2017-02-16 06:42] LABS: Albumin 2.8 G/DL (3.4-5.0); Bilirubin,Total 0.5 MG/DL (0.2-1.0); Calcium 9.2 MG/DL (8.5-10.1); Osmolality,Calculated 286.8 MOS/KG (273-304); Potassium 4.5 MMOL/L (3.5-5.1); Total Protein 6.2 G/DL (6.4-8.3)
--- NOTE | 2017-02-16 08:17 | Family Practice Progress Note ---
Family Practice - PN: Subj Interval history: Patient states that she feels she continues to slowly improve. Still having a lot of nonproductive cough but she is breathing much better overall. Increased airflow with improved wheezing. I have discussed with patient and she has seen Dr. Oh in the past. Will consult Dr. Oh to see if he has any further recommendations. She has had long-term lung disease and is being treated fibrillation for the last several years due to insurance change. She may have some mucus plugging. Overall she has improved significantly. We will continue present treatment plan. Exam (Progress Note) - Constitutional Vitals: Period Temp Pulse Resp BP Sys/Giron Pulse Ox Last 24 Hr 96.8 F-98.3 F 75-98 14-24 117-134/65-74 95-100 Results - Labs CBC & BMP: 02/16/17 05:46 02/16/17 05:46 Assessment and Plan (1) exacerbation of COPD Status: Acute Assessment and plan: Patient has failed outpatient therapy. Will admit for aggressive evaluation and treatment Current Visit: Yes (2) type 2 diabetes mellitus Status: Chronic Assessment and plan: Stable on present medications. We'll start on sliding scale Current Visit: Yes (3) Hx of CABG Status: Chronic Assessment and plan: Stable on present medications Current Visit: No (4) CAD (coronary artery disease) Status: Chronic Assessment and plan: Stable on present medications Current Visit: No (5) Dyslipidemia Status: Chronic Assessment and plan: Stable on present treatment plan Current Visit: No (6) Hypertension Status: Chronic Assessment and plan: Stable on present treatment plan Current Visit: No Qualifiers: Hypertension type: essential hypertension Qualified Code(s): I10 - Essential (primary) hypertension (7) polyneuropathy Status: Chronic Assessment and plan: Stable at present Current Visit: Yes
[2017-02-16] MEDS: INSULIN LISPRO 100 UNIT/ML SUBCUT SCH ×4 (09:33→21:01)
[2017-02-16] MEDS: FLUTICASONE 50 MCG NASAL SPRAY 16 GM BOTTLE BOTH NARES SCH (09:34)
[2017-02-16] MEDS: glipiZIDE 10 MG TABLET PO SCH (09:35)
[2017-02-16] MEDS: ASCORBIC ACID 500 MG TABLET PO SCH ×2 (09:35→21:01)
[2017-02-16] MEDS: amLODIPine 10 MG TABLET PO SCH (09:35)
[2017-02-16] MEDS: LEVOFLOXACIN INJ 500 MG in PREMIX 1 EACH IV SCH (09:36)
[2017-02-16] MEDS: CALCIUM (CITRATE)/VITAMIN D 200 MG-125 UNIT TABLET PO SCH ×2 (09:36→21:01)
[2017-02-16] MEDS: metFORMIN 500 MG TABLET PO SCH ×2 (09:36→15:59)
[2017-02-16] MEDS: DOCUSATE SODIUM 100 MG CAPSULE PO SCH ×2 (09:36→21:01)
[2017-02-16] MEDS: GABAPENTIN 300 MG CAPSULE PO SCH ×3 (09:36→21:01)
[2017-02-16] MEDS: ASPIRIN EC 325 MG TABLET PO SCH (09:36)
[2017-02-16] MEDS: MAGNESIUM OXIDE 400 MG TABLET PO SCH ×2 (09:36→21:01)
[2017-02-16] MEDS: FUROSEMIDE 20 MG TABLET PO PRN (09:36)
[2017-02-16] MEDS: PANTOPRAZOLE 40 MG TABLET PO SCH (09:36)
[2017-02-16] MEDS: CARVEDILOL 3.125 MG TABLET PO SCH ×2 (09:36→21:01)
--- NOTE | 2017-02-16 12:59 | Pulmonology Consult Note ---
Assessment and Plan (1) Asthmatic bronchitis with acute exacerbation Status: Acute Assessment and plan: Patient comes in with mild asthmatic bronchitis with an exacerbation. She is better but she still having some trouble clearing secretions. Will see how she does with medicines but she may need a therapeutic bronchoscopy. Current Visit: Yes (2) Hypertension Status: Chronic Assessment and plan: She will continue present medicines. Her blood pressure and heart rate are stable. Current Visit: No Qualifiers: Hypertension type: essential hypertension Qualified Code(s): I10 - Essential (primary) hypertension (3) Hx of CABG Status: Chronic Assessment and plan: Patient had bypass surgery couple years ago and seems to be doing fairly well. Current Visit: No (4) type 2 diabetes mellitus Status: Chronic Assessment and plan: Her glucoses are elevated at present Current Visit: Yes History of Present Illness Chief complaint: Coughing History of present illness: Ms. Alex is a 66 year old black female that has a history of having asthma and I used to see her about 10 years ago. About 15 years ago we treated her for blastomycosis and this cleared fairly well. She says she had been doing well and then about 2 years ago she had bypass surgery at [facility]. She comes in now with a couple weeks of cough and congestion and she felt like she had bronchitis. She comes in for IV medicines and is doing a little better. She still has a little trouble clearing secretions but she feels like her breathing is better. At home she would use a Combivent inhaler as needed. She does have diabetes and hypertension along with her heart disease. Home Medications Medication Instructions Recorded Confirmed Type Calcium (Citr)/Vit D 200-125 1 tablet PO BID 01/21/16 02/14/17 History [Citracal + D] Furosemide Tab [Lasix Tab] 20 mg PO DAILY PRN 01/21/16 02/14/17 History Magnesium Oxide [Magox 400] 400 mg PO BID 01/21/16 02/14/17 History Pravastatin Sodium 40 mg PO BEDTIME 01/21/16 02/14/17 History glipiZIDE [Glipizide] 10 mg PO DAILY 01/21/16 02/14/17 History metFORMIN [Glucophage] 500 mg PO BID W/MEALS 01/21/16 02/14/17 History Nitroglycerin Sl Tab [Nitrostat] 0.4 mg SL Q5M PRN #25 tablet 01/22/16 02/14/17 Rx Carvedilol 3.125 mg PO BID 03/18/16 02/14/17 History amLODIPine [Norvasc] 10 mg PO DAILY #90 tablet 03/20/16 02/14/17 Rx Ascorbic Acid [Vitamin C Chew Tab] 1,000 mg PO BID 12/27/16 02/14/17 History Ipratropium/Albuterol Inhaler 1 puff INH BID PRN 12/27/16 02/14/17 History [Combivent Respimat Inhaler] Tramadol HCl [Tramadol Tab] 50 mg PO BID PRN 12/27/16 02/14/17 History Acetaminophen Tab [Tylenol Tab] 325 mg PO BID #14 bottle 12/28/16 02/14/17 Rx Aspirin EC Tab 325 mg PO DAILY 12/28/16 02/14/17 History Gabapentin 300 mg PO TID 02/14/17 02/14/17 History Allergies Allergy/AdvReac Type Severity Reaction Status Date / Time citalopram [From Celexa] AdvReac Vomiting Verified 01/21/16 17:11 hydrocodone [From Lortab] AdvReac Vomiting Verified 01/21/16 17:11 ropinirole [From Requip] AdvReac Vomiting Verified 01/21/16 17:11 - Constitutional Constitutional: Present: chills, fatigue, fever(s). Absent: night sweats, weight gain, weight loss - EENT Eyes: Absent: loss of vision Ears: Absent: decreased hearing Nose, mouth and throat: Absent: dysphagia, headache(s), sinus pressure - Cardiovascular Cardiovascular: Present: dyspnea on exertion. Absent: chest pain at rest, chest pain with activity, edema, orthopnea, palpitations, PND - Respiratory Respiratory: Present: cough, wheezing. Absent: hemoptysis, change in phlegm color - Gastrointestinal Gastrointestinal: Absent: abdominal pain, change in bowel habits, dysphagia, heartburn, nausea, vomiting - Genitourinary Genitourinary: Absent: dysuria, hematuria, urinary frequency - Musculoskeletal Musculoskeletal: Absent: arthralgias, muscle weakness - Neurological Neurological: Absent: abnormal speech, focal weakness, paresthesias - Psychiatric Psychiatric: Absent: anxiety Exam (Pulmonay) H&P - Constitutional Vitals: Period Temp Pulse Resp BP Sys/Giron Pulse Ox Last 24 Hr 96.8 F-98.3 F 75-98 2-22 113-134/62-74 96-100 General appearance: normal weight, no acute distress - Head Head exam: Present: normal inspection, normocephalic - Eye Eye exam: Present: EOMI. Absent: scleral icterus Pupils: Present: TORI - ENT ENT exam: Present: normal exam, other (No sinus tenderness) - Neck Neck exam: Present: normal inspection. Absent: lymphadenopathy, thyromegaly - Respiratory Respiratory exam: Present: rhonchi, wheezes. Absent: accessory muscle use - Cardiovascular Cardiovascular exam: Present: regular rate and rhythm. Absent: gallop, systolic murmur - GI/Abdominal GI/Abdominal exam: Present: normal bowel sounds, soft. Absent: distended, organomegaly, tenderness - Extremities Exam Extremities exam: Absent: calf tenderness, edema - Neurological Exam Neurological exam: Present: alert, oriented X3, CN II-XII intact. Absent: motor sensory deficit - Psychiatric Psychiatric exam: Present: normal affect, normal mood - Skin Skin exam: Present: warm, dry Medical,Surgical,& Family Hx - Medical History Cardio: History of: Cerebrovascular Disease, CAD, Hypertension, Cardiovascular Problems (cad,cabg 2015 at [facility]) No history of: Aneurysm, Cardiac Dysrhythmia, [place], Pacemaker, PVD Psychological: No history of: ADHD, Behavior Problems, Depression, Previous Suicide Attempt , Psychiatric/Substance Abuse Tx, Schizophrenia, Violent Behavior, Psychiatric Problems Neurology: History of: Migraine, Peripheral Neuropathy No history of: Brain Aneurysm, Cerebrovascular Accident, Parkinson's Disease , Seizures, TIA, Vertigo, Neurologocal Cancer HEENT: History of: Eye Problem (glasses), HEENT Problems (SINUS SURGERY) No history of: Ear Problem, Dental Problems Endocrine: History of: Diabetes Mellitus (NIDDM), Dyslipidemia No history of: Diabetes Mellitus (IDDM), Thyroid Disorder, Endocrine Cancer, Endocrine Problems Rheumatology: History of;: Rheumatological Problems No history of;: Rheumatoid Arthritis, Sjogrens, Systemic Lupus Erythematosus Respiratory: History of: Bronchitis, COPD, Respiratory Problems (Treated for blastomycosis 15 years ago.) No history of: Asthma, Intubation, Obstructive Sleep Apnea, Pulmonary Hypertension, Pneumonia, Lung Cancer Renal: No history of: Renal Failure Genitourinary: No history of: Bladder Problem, Genitourinary Cancer Gastrointestinal: No history of: Bowel Obstruction, Clostridium Difficile, GERD, Gastrointestinal Bleed, Hepatitis, Liver Problems, Gastrointestinal Cancer Musculoskeletal: No history of: Amputation, Back/Neck Problems, Musculoskeletal Problems Hematology: History of: Anemia No history of: Blood Transfusion Reaction, Clotting Problems, Sickle Cell Disease, Blood Disorders Other: No history of: Cancer, Eczema, HIV, Skin Problems, Miscellaneous Medical Problems - Surgical History Cardiac Surgeries: Sugical HX of: Cardiac Catheterization, Cardiac Surgery ( quadruple bypass in november 2014) Patient Denies: Femoral-Popliteal Bypass Graft, Carotid Endarterectomy, Internal Defibrillator, Vascular Access Devices Thoracic Surgeries: Patient denies;: Kidney (Renal Surgery), Lithotripsy, Nephrectomy, Organ Transplant, Lobectomy Neurologic Surgeries: Patient denies: Brain Aneurysm, Neurologic Surgery HEENT Surgeries: Patient denies: Carotid Endarterectomy, Eye Surgery, Thyroid Surgery, Tonsilectomy & Adenoidectomy Abdominal Surgeries: Surgical HX of: Colonoscopy Patient denies: Abdominal Surgery, Appendectomy, Cholecystectomy, Gastric Bypass Surgery, EGD, Hernia Repair, Splenectomy Reproductive Surgeries: Surgical HX of;: Breast Surgery (rt breast), Gynecologic Surgery (hyst), Hysterectomy Patient denies;: Section, Cystoscopy, Genitourinary Surgery Orthopedic Surgeries: Surgical HX of;: Orthopedic Surgery (arthroscopic knee surgery) - Family History Family History: Reports;: Family Cancer (MOTHER-LUNG CA), Family Heart Disease ( MOTHER), Family Hypertension (MOTHER) Denies;: Family Diabetes - Social History Smoking Status: Former smoker Frequency of Alcohol Use: None Type of Drug Use: None Results - Labs CBC & BMP: 02/16/17 05:46 02/16/17 05:46 - Diagnostic Findings Procedure: Chest x-ray: image reviewed by me, report reviewed by me (Chest x- ray shows normal heart size post CABG. there is some chronic scarring in the right upper lobe)
[2017-02-16] MEDS: SODIUM CHLORIDE 0.45% 1,000 ML IV SCH (20:59)
[2017-02-16] MEDS: PRAVASTATIN 40 MG TABLET PO SCH (21:01)
[2017-02-17] MEDS: methylPREDNISolone SOD SUC 40 MG/1 ML VIAL IV SCH ×3 (01:52→20:40)
[2017-02-17] MEDS: ALBUTEROL/IPRATROPIUM 3 ML NEB RESP TX SCH ×6 (03:29→23:40)
[2017-02-17] MEDS: traMADol 50 MG TABLET PO PRN ×2 (05:15→20:39)
[2017-02-17 05:46] LABS: Basophils % 0.1 % (0.0-0.8); Hematocrit 35.2 VOL% (35.7-47.0); Hemoglobin 11.5 GM/DL (12.0-16.0); Immature Granulocytes % 3.3 %; Immature Granulocytes Absolute 0.63 #; Lymphocytes % 5.5 % (21.3-54.2); Mean Corpuscular HGB Conc 32.7 GM/DL (32-36); Mean Corpuscular Hemoglobin 26 PG (27-34); Mean Corpuscular Volume 80.2 FL (87-102); Mean Platelet Volume 9.6 FL (9.6-12.0); Monocytes # 0.4 10*3/uL (0.11-0.8); Monocytes % 2.1 % (1.7-12.7); Neutrophils # 16.8 10*3/uL (1.4-7.4); Platelet Count 329 T/CUMM (130-400); Red Blood Count 4.39 MC/CUMM (3.8-5.5); Red Cell Distribution Width 13.6 % (9.3-17.3); White Blood Count 18.9 T/CUMM (4-12)
[2017-02-17 06:11] LABS: Band Neutrophils 2 % (0-10); Lymphocytes 5 % (20-55); Segmented Neutrophils 93 % (50-85); Total Cells Counted 100
[2017-02-17 06:12] LABS: Hypochromasia 1+; Ovalocytes Slight; Platelet Estimate Adequate
[2017-02-17 06:19] LABS: Calcium 9.1 MG/DL (8.5-10.1); Ferritin 148.4 ng/ml (8-252); Magnesium 2.3 MG/DL (1.8-2.4); Osmolality,Calculated 288.7 MOS/KG (273-304); Potassium 4.3 MMOL/L (3.5-5.1)
--- NOTE | 2017-02-17 08:42 | Family Practice Progress Note ---
Family Practice - PN: Subj Interval history: Patient states that she feels that she is some better today but continues to have frequent nonproductive cough. Still becomes dyspneic with minimal exertion. States she still feels very weak. Her vitals and lab studies are stable. Her lung silvestre continue to improve his only occasional wheeze in bases. Most of her complaints seem to be from the mucus. Discussed findings and treatment in detail with patient. She is concerned about her blood sugars but I have reassured her that they will come back under control when we stopped the steroids. We will continue present treatment plan Exam (Progress Note) - Constitutional Vitals: Period Temp Pulse Resp BP Sys/Giron Pulse Ox Last 24 Hr 97.3 F-98.3 F 75-86 2-22 113-142/62-74 95-100 Results - Labs CBC & BMP: 02/17/17 05:02 02/17/17 05:02 Assessment and Plan (1) exacerbation of COPD Status: Acute Assessment and plan: Patient has failed outpatient therapy. Will admit for aggressive evaluation and treatment Current Visit: Yes (2) type 2 diabetes mellitus Status: Chronic Assessment and plan: Stable on present medications. We'll start on sliding scale Current Visit: Yes (3) Hx of CABG Status: Chronic Assessment and plan: Stable on present medications Current Visit: No (4) CAD (coronary artery disease) Status: Chronic Assessment and plan: Stable on present medications Current Visit: No (5) Dyslipidemia Status: Chronic Assessment and plan: Stable on present treatment plan Current Visit: No (6) Hypertension Status: Chronic Assessment and plan: Stable on present treatment plan Current Visit: No Qualifiers: Hypertension type: essential hypertension Qualified Code(s): I10 - Essential (primary) hypertension (7) polyneuropathy Status: Chronic Assessment and plan: Stable at present Current Visit: Yes
[2017-02-17] MEDS: SODIUM CHLORIDE 0.45% 1,000 ML IV SCH (09:29)
[2017-02-17] MEDS: INSULIN LISPRO 100 UNIT/ML SUBCUT SCH ×4 (09:30→20:38)
[2017-02-17] MEDS: FLUTICASONE 50 MCG NASAL SPRAY 16 GM BOTTLE BOTH NARES SCH (09:31)
[2017-02-17] MEDS: LEVOFLOXACIN INJ 500 MG in PREMIX 1 EACH IV SCH (09:32)
[2017-02-17] MEDS: DOCUSATE SODIUM 100 MG CAPSULE PO SCH ×2 (09:32→20:39)
[2017-02-17] MEDS: CALCIUM (CITRATE)/VITAMIN D 200 MG-125 UNIT TABLET PO SCH ×2 (09:32→20:39)
[2017-02-17] MEDS: amLODIPine 10 MG TABLET PO SCH (09:32)
[2017-02-17] MEDS: ASPIRIN EC 325 MG TABLET PO SCH (09:32)
[2017-02-17] MEDS: CARVEDILOL 3.125 MG TABLET PO SCH ×2 (09:32→20:39)
[2017-02-17] MEDS: PANTOPRAZOLE 40 MG TABLET PO SCH (09:32)
[2017-02-17] MEDS: metFORMIN 500 MG TABLET PO SCH ×2 (09:32→16:41)
[2017-02-17] MEDS: MAGNESIUM OXIDE 400 MG TABLET PO SCH ×2 (09:32→20:38)
[2017-02-17] MEDS: glipiZIDE 10 MG TABLET PO SCH (09:32)
--- NOTE | 2017-02-17 09:34 | Pulmonology Progress Note ---
Pulmonary - PN: Subj Interval history: Patient is a 66-year-old black lady has asthmatic bronchitis. She had previous bypass surgery but no signs of heart failure now. She was treated for blastomycosis years ago and has some scarring in the right upper lobe. She has been having some cough with sputum production but she is better now. She says she still coughing a little bit but does not feel like she is very congested now. She does not feel like has a lot of secretions now. She feels like her breathing is better she is walking around some. She says she is tolerating everything other than her glucose up on steroids. Exam (Progress Note) - Constitutional Vitals: Period Temp Pulse Resp BP Sys/Giron Pulse Ox Last 24 Hr 97.3 F-98.3 F 75-86 2-22 113-142/62-74 95-100 Exam: General appearance: normal weight, no acute distress, she looks quite comfortable sitting up in a chair. - Head Head exam: Present: normal inspection, normocephalic - Eye Eye exam: Present: EOMI. Absent: scleral icterus Pupils: Present: TORI - ENT ENT exam: Present: normal exam, other (No sinus tenderness) - Neck Neck exam: Present: normal inspection. Absent: lymphadenopathy, thyromegaly - Respiratory Respiratory exam: Present: Her lungs have fairly good breath sounds and she is moving air well with just some very minimal rhonchi. - Cardiovascular Cardiovascular exam: Present: regular rate and rhythm. Absent: gallop, systolic murmur - GI/Abdominal GI/Abdominal exam: Present: normal bowel sounds, soft. Absent: distended, organomegaly, tenderness - Extremities Exam Extremities exam: Absent: calf tenderness, edema - Neurological Exam Neurological exam: Present: alert, oriented X3, CN II-XII intact. Absent: motor sensory deficit - Psychiatric Psychiatric exam: Present: normal affect, normal mood - Skin Skin exam: Present: warm, dry Results - Labs CBC & BMP: 02/17/17 05:02 02/17/17 05:02 Assessment and Plan (1) Asthmatic bronchitis with acute exacerbation Status: Acute Assessment and plan: Patient comes in with mild asthmatic bronchitis with an exacerbation. She is doing better and her breathing is better. She does not feel like she has a lot of secretions now. Her lungs sound better. She can probably go home soon. Current Visit: Yes (2) Hypertension Status: Chronic Assessment and plan: She will continue present medicines. Her blood pressure and heart rate are stable. Current Visit: No Qualifiers: Hypertension type: essential hypertension Qualified Code(s): I10 - Essential (primary) hypertension (3) Hx of CABG Status: Chronic Assessment and plan: Patient had bypass surgery couple years ago and seems to be doing fairly well. Current Visit: No (4) type 2 diabetes mellitus Status: Chronic Assessment and plan: Her glucoses are elevated at present while she is on steroids. I will start cutting back on her steroids. Current Visit: Yes
[2017-02-17] MEDS: ASCORBIC ACID 500 MG TABLET PO SCH ×2 (09:43→20:38)
[2017-02-17] MEDS: GABAPENTIN 300 MG CAPSULE PO SCH ×3 (09:44→20:39)
--- NOTE | 2017-02-17 10:06 | Physician Query Form ---
CLICK EDIT DOCUMENT TO SELECT QUERY ANSWER --> OK --> SIGN Janine Deras RN, CCDS Certified Clinical Refrigeration Service Technician W) [phone] (f) [phone] [email or web address]: Make your selection(s) from the choices in EACH section by typing an "x" and enter comments in the comment section. Please use your independent medical judgment in providing your response. This request does not imply that any particular answer is desired or expected. CLINICAL INDICATORS: (Providers should not edit this section) The medical record indicates that the patient was admitted for COPD Exacerbation, "mild asthmatic bronchitis with an exacerbation", "rhonchi, wheezes", on the : "occasional wheeze in bases" and the patient is on Duoneb , Symbicort, Flonase, Levofloxacin, Solumedrol. Based on documentation of Asthma, can you please provide further specificity regarding the diagnosis? (x ) Mild intermittent extrinsic asthma with acute exacerbation ( ) Mild persistent extrinsic asthma with acute exacerbation ( ) Moderate persistent extrinsic asthma with acute exacerbation ( ) Severe persistent extrinsic asthma with acute exacerbation ( ) Mild intermittent extrinsic asthma with status asthmaticus ( ) Mild persistent extrinsic asthma with status asthmaticus ( ) Moderate persistent extrinsic asthma with status asthmaticus ( ) Severe intermittent extrinsic asthma with status asthmaticus ( ) Other, please specify: ( ) Clinically unable to determine COMMENTS: PLEASE ALSO DOCUMENT RESPONSE IN PROGRESS NOTES AND/OR DISCHARGE SUMMARY Use of terms such as suspected, likely, or probable (associated with a specific diagnosis that is being evaluated, monitored, or treated as if it exists) are acceptable and can be restated in the discharge summary if not ruled out. MTDD
[2017-02-17] MEDS: BUDESONIDE/FORMOTEROL 160-4.5 INHALER 6 GM INH SCH ×2 (12:31→20:40)
[2017-02-17] MEDS: PRAVASTATIN 40 MG TABLET PO SCH (20:40)
[2017-02-18] MEDS: SODIUM CHLORIDE 0.45% 1,000 ML IV SCH ×2 (02:09→16:31)
[2017-02-18] MEDS: ALBUTEROL/IPRATROPIUM 3 ML NEB RESP TX SCH ×5 (02:54→20:25)
[2017-02-18] MEDS: FUROSEMIDE 20 MG TABLET PO PRN (05:55)
--- NOTE | 2017-02-18 08:11 | Family Practice Progress Note ---
Family Practice - PN: Subj Interval history: Patient states that she continues to slowly improve. Still complaining of some dyspnea with exertion and cough. She was admitted with an exacerbation of chronic obstructive disease. Definitely has improved on a daily basis. Patient still has some scattered wheezing in bases bilaterally. She still feels that she is weak. Reviewed lab and studies in detail all appear. The remainder the examination is stable. Hopefully will be able to discharge in a.m. if patient continues to improve Exam (Progress Note) - Constitutional Vitals: Period Temp Pulse Resp BP Sys/Giron Pulse Ox Last 24 Hr 97.1 F-97.6 F 71-98 15-20 116-128/64-76 95-100 Results - Labs CBC & BMP: 02/17/17 05:02 02/17/17 05:02 Assessment and Plan (1) exacerbation of COPD Status: Acute Assessment and plan: Patient has failed outpatient therapy. Will admit for aggressive evaluation and treatment Current Visit: Yes (2) type 2 diabetes mellitus Status: Chronic Assessment and plan: Stable on present medications. We'll start on sliding scale Current Visit: Yes (3) Hx of CABG Status: Chronic Assessment and plan: Stable on present medications Current Visit: No (4) CAD (coronary artery disease) Status: Chronic Assessment and plan: Stable on present medications Current Visit: No (5) Dyslipidemia Status: Chronic Assessment and plan: Stable on present treatment plan Current Visit: No (6) Hypertension Status: Chronic Assessment and plan: Stable on present treatment plan Current Visit: No Qualifiers: Hypertension type: essential hypertension Qualified Code(s): I10 - Essential (primary) hypertension (7) polyneuropathy Status: Chronic Assessment and plan: Stable at present Current Visit: Yes
[2017-02-18] MEDS: INSULIN LISPRO 100 UNIT/ML SUBCUT SCH ×4 (08:58→21:25)
[2017-02-18] MEDS: metFORMIN 500 MG TABLET PO SCH ×2 (08:58→16:33)
[2017-02-18] MEDS: ASCORBIC ACID 500 MG TABLET PO SCH ×2 (09:08→21:03)
[2017-02-18] MEDS: ASPIRIN EC 325 MG TABLET PO SCH (09:09)
[2017-02-18] MEDS: glipiZIDE 10 MG TABLET PO SCH (09:09)
[2017-02-18] MEDS: MAGNESIUM OXIDE 400 MG TABLET PO SCH ×2 (09:09→21:02)
[2017-02-18] MEDS: amLODIPine 10 MG TABLET PO SCH (09:09)
[2017-02-18] MEDS: GABAPENTIN 300 MG CAPSULE PO SCH ×3 (09:09→21:04)
[2017-02-18] MEDS: CALCIUM (CITRATE)/VITAMIN D 200 MG-125 UNIT TABLET PO SCH ×2 (09:09→21:02)
[2017-02-18] MEDS: DOCUSATE SODIUM 100 MG CAPSULE PO SCH ×2 (09:09→21:03)
[2017-02-18] MEDS: PANTOPRAZOLE 40 MG TABLET PO SCH (09:09)
[2017-02-18] MEDS: BUDESONIDE/FORMOTEROL 160-4.5 INHALER 6 GM INH SCH ×2 (09:10→21:05)
[2017-02-18] MEDS: CARVEDILOL 3.125 MG TABLET PO SCH ×2 (09:10→21:02)
[2017-02-18] MEDS: FLUTICASONE 50 MCG NASAL SPRAY 16 GM BOTTLE BOTH NARES SCH (09:10)
[2017-02-18] MEDS: methylPREDNISolone SOD SUC 40 MG/1 ML VIAL IV SCH ×2 (09:11→21:05)
[2017-02-18] MEDS: LEVOFLOXACIN INJ 500 MG in PREMIX 1 EACH IV SCH (09:17)
[2017-02-18] MEDS: traMADol 50 MG TABLET PO PRN (13:39)
--- NOTE | 2017-02-18 13:44 | Pulmonology Progress Note ---
Pulmonary - PN: Subj Interval history: Patient is a 66-year-old black lady has asthmatic bronchitis. She had previous bypass surgery but no signs of heart failure now. She was treated for blastomycosis years ago and has some scarring in the right upper lobe. She has been having some cough with sputum production but she is better now. She says she still coughing a little bit but does not feel like she is very congested now. She says she had a fairly good night and her breathing is better. She still has a slight cough but her wheezing is much better. She looks like she is doing well and should be able to go soon. Exam (Progress Note) - Constitutional Vitals: Period Temp Pulse Resp BP Sys/Giron Pulse Ox Last 24 Hr 97.1 F-97.6 F 71-98 16-20 116-128/64-76 95-100 Exam: General appearance: normal weight, no acute distress, she looks quite comfortable sitting up in a chair. She is not having any distress. - Head Head exam: Present: normal inspection, normocephalic - Eye Eye exam: Present: EOMI. Absent: scleral icterus Pupils: Present: TORI - ENT ENT exam: Present: normal exam, other (No sinus tenderness) - Neck Neck exam: Present: normal inspection. Absent: lymphadenopathy, thyromegaly - Respiratory Respiratory exam: Present: Her lungs have fairly good breath sounds in her lungs sound much better with no wheezing now. - Cardiovascular Cardiovascular exam: Present: regular rate and rhythm. Absent: gallop, systolic murmur - GI/Abdominal GI/Abdominal exam: Present: normal bowel sounds, soft. Absent: distended, organomegaly, tenderness - Extremities Exam Extremities exam: Absent: calf tenderness, edema - Neurological Exam Neurological exam: Present: alert, oriented X3, CN II-XII intact. Absent: motor sensory deficit - Psychiatric Psychiatric exam: Present: normal affect, normal mood - Skin Skin exam: Present: warm, dry Results - Labs CBC & BMP: 02/17/17 05:02 02/17/17 05:02 Assessment and Plan (1) Asthmatic bronchitis with acute exacerbation Status: Acute Assessment and plan: Patient comes in with mild asthmatic bronchitis with an exacerbation. She is doing better and her breathing is better. She does not feel as congested and overall she feels better. Will continue with bronchodilator therapy. She can probably go home tomorrow. Current Visit: Yes (2) Hypertension Status: Chronic Assessment and plan: She will continue present medicines. Her blood pressure and heart rate are stable. Current Visit: No Qualifiers: Hypertension type: essential hypertension Qualified Code(s): I10 - Essential (primary) hypertension (3) Hx of CABG Status: Chronic Assessment and plan: Patient had bypass surgery couple years ago and seems to be doing fairly well. Current Visit: No (4) type 2 diabetes mellitus Status: Chronic Assessment and plan: Her glucoses are elevated at present while she is on steroids. Her glucose is 179 today and is better. Current Visit: Yes
[2017-02-18] MEDS: PRAVASTATIN 40 MG TABLET PO SCH (21:04)
[2017-02-19] MEDS: ALBUTEROL/IPRATROPIUM 3 ML NEB RESP TX SCH ×7 (00:23→23:00)
[2017-02-19] MEDS: traMADol 50 MG TABLET PO PRN ×2 (00:36→20:46)
[2017-02-19] MEDS: SODIUM CHLORIDE 0.45% 1,000 ML IV SCH ×2 (07:50→20:47)
[2017-02-19] MEDS: INSULIN LISPRO 100 UNIT/ML SUBCUT SCH ×4 (08:57→20:40)
[2017-02-19] MEDS: metFORMIN 500 MG TABLET PO SCH ×2 (08:57→16:36)
[2017-02-19] MEDS: CALCIUM (CITRATE)/VITAMIN D 200 MG-125 UNIT TABLET PO SCH ×2 (09:23→20:39)
[2017-02-19] MEDS: GABAPENTIN 300 MG CAPSULE PO SCH ×3 (09:23→20:39)
[2017-02-19] MEDS: MAGNESIUM OXIDE 400 MG TABLET PO SCH ×2 (09:24→20:39)
[2017-02-19] MEDS: glipiZIDE 10 MG TABLET PO SCH (09:24)
[2017-02-19] MEDS: ASCORBIC ACID 500 MG TABLET PO SCH ×2 (09:24→20:39)
[2017-02-19] MEDS: amLODIPine 10 MG TABLET PO SCH (09:24)
[2017-02-19] MEDS: PANTOPRAZOLE 40 MG TABLET PO SCH (09:24)
[2017-02-19] MEDS: methylPREDNISolone SOD SUC 40 MG/1 ML VIAL IV SCH ×2 (09:25→20:40)
[2017-02-19] MEDS: CARVEDILOL 3.125 MG TABLET PO SCH ×2 (09:25→20:39)
[2017-02-19] MEDS: ASPIRIN EC 325 MG TABLET PO SCH (09:25)
[2017-02-19] MEDS: DOCUSATE SODIUM 100 MG CAPSULE PO SCH ×2 (09:25→20:39)
[2017-02-19] MEDS: MONTELUKAST 10 MG TABLET PO SCH (09:25)
[2017-02-19] MEDS: FLUTICASONE 50 MCG NASAL SPRAY 16 GM BOTTLE BOTH NARES SCH (09:27)
[2017-02-19] MEDS: BUDESONIDE/FORMOTEROL 160-4.5 INHALER 6 GM INH SCH ×2 (09:27→20:41)
[2017-02-19] MEDS: LEVOFLOXACIN INJ 500 MG in PREMIX 1 EACH IV SCH (09:35)
--- NOTE | 2017-02-19 10:02 | Pulmonology Progress Note ---
Pulmonary - PN: Subj Interval history: This is a 66-year-old black female who has asthma and is admitted with asthmatic bronchitis. She had been doing a lot better. Today she complains bitterly of wheezing cough inability to mobilize her sputum. My exam she has coarse large airway congestion over the trachea and she also has a tracheal and large airway wheeze. I have added Singulair 10 mg 2 daily to her regimen. Looks like she is probably going to need to be in the hospital a little longer. Microbiology. No results reported. Lab. Glucoses are up a little bit. Labs been reviewed. Physical exam. Vital signs. See below Psychiatric oriented 3 Neurologic. Cranial nerves are intact long track motor functions intact. Gait was not tested Face is symmetrical. No swelling of lips or tongue. Neck. Symmetrical. No meningismus. Chest. Tracheal and large airway wheeze and associated congestion in these areas. No chest wall tenderness Heart no gallop Abdomen. Positive bowel sounds Extremities nothing to suggest deep venous thrombophlebitis. The remainder the physical exam is negative. Plan. 1. Add Singulair 2. Continue present regimen 3. Healing of the patient's glucoses are up I do not think we should decrease her Solu-Medrol beyond her present 20 mg IV push every 12 hours Exam (Progress Note) - Constitutional Vitals: Period Temp Pulse Resp BP Sys/Giron Pulse Ox Last 24 Hr 97.1 F-98.7 F 78-88 16-20 120-137/66-75 95-100 Results - Labs CBC & BMP: 02/17/17 05:02 02/17/17 05:02
--- NOTE | 2017-02-19 16:20 | Internal Med Progress Note ---
Assessment and Plan (1) exacerbation of COPD Status: Acute Current Visit: Yes (2) type 2 diabetes mellitus Status: Chronic Current Visit: Yes (3) CAD (coronary artery disease) Status: Chronic Current Visit: No Qualifiers: Coronary Disease-Associated Artery/Lesion type: [place] artery [place] vs. transplanted heart: [place] heart (4) Dyslipidemia Status: Chronic Current Visit: No (5) Hx of CABG Status: Chronic Current Visit: No (6) Hypertension Status: Chronic Current Visit: Yes Qualifiers: Hypertension type: essential hypertension Qualified Code(s): I10 - Essential (primary) hypertension Internal Medicine - PN: Subj Interval history: This is a 66 year old female patient of Dr. Amin with history of HTN, DM, CAD , CABG, dyslipidemia, COPD, who presented to ER with COPD exacerbation. She is improving, but today complained of coughing. Hyperglycemic and decreased Solumedrol. Exam (Progress Note) - Constitutional Vitals: Period Temp Pulse Resp BP Sys/Giron Pulse Ox Last 24 Hr 97.1 F-98.7 F 79-88 18-22 125-137/66-75 95-100 General appearance: no acute distress - Respiratory Respiratory exam: Present: clear to auscultation bilaterally - Cardiovascular Cardiovascular exam: Present: regular rate and rhythm - GI/Abdominal GI/Abdominal exam: Present: soft. Absent: tenderness - Extremities Exam Extremities exam: Absent: edema - Neurological Exam Neurological exam: Present: alert - Psychiatric Psychiatric exam: Present: normal affect - Skin Skin exam: Present: warm, dry Results - Labs CBC & BMP: 02/17/17 05:02 02/17/17 05:02 - Diagnostic Findings Procedure: Chest x-ray: report reviewed by me
[2017-02-19] MEDS: PRAVASTATIN 40 MG TABLET PO SCH (20:39)
[2017-02-20] MEDS: ALBUTEROL/IPRATROPIUM 3 ML NEB RESP TX SCH ×5 (03:00→20:24)
[2017-02-20 04:29] LABS: Basophils % 0.2 % (0.0-0.8); Hemoglobin 11.5 GM/DL (12.0-16.0); Immature Granulocytes % 6.7 %; Immature Granulocytes Absolute 0.96 #; Lymphocytes # 1.2 10*3/uL (1.4-4.0); Lymphocytes % 8.6 % (21.3-54.2); Mean Corpuscular HGB Conc 32.9 GM/DL (32-36); Mean Corpuscular Hemoglobin 26 PG (27-34); Mean Corpuscular Volume 80.5 FL (87-102); Mean Platelet Volume 9.6 FL (9.6-12.0); Monocytes # 0.5 10*3/uL (0.11-0.8); Monocytes % 3.4 % (1.7-12.7); Neutrophils # 11.6 10*3/uL (1.4-7.4); Neutrophils % 81.1 % (38.7-73.9); Platelet Count 319 T/CUMM (130-400); Red Blood Count 4.35 MC/CUMM (3.8-5.5); Red Cell Distribution Width 13.7 % (9.3-17.3); White Blood Count 14.3 T/CUMM (4-12)
[2017-02-20 05:03] LABS: Calcium 9.1 MG/DL (8.5-10.1); Osmolality,Calculated 290.7 MOS/KG (273-304); Potassium 4.5 MMOL/L (3.5-5.1)
[2017-02-20 06:59] LABS: Band Neutrophils 3 % (0-10); Burr Cells Slight; Hypochromasia 1+; Lymphocytes 13 % (20-55); Myelocytes 1 %; Ovalocytes Slight; Platelet Estimate Adequate; Segmented Neutrophils 82 % (50-85); Total Cells Counted 100
[2017-02-20] MEDS: INSULIN LISPRO 100 UNIT/ML SUBCUT SCH ×4 (08:08→21:41)
[2017-02-20] MEDS: CALCIUM (CITRATE)/VITAMIN D 200 MG-125 UNIT TABLET PO SCH ×2 (08:09→20:15)
[2017-02-20] MEDS: MAGNESIUM OXIDE 400 MG TABLET PO SCH ×2 (08:09→20:17)
[2017-02-20] MEDS: BENZONATATE 100 MG CAPSULE PO SCH ×3 (08:09→20:15)
[2017-02-20] MEDS: CARVEDILOL 3.125 MG TABLET PO SCH ×2 (08:09→20:15)
[2017-02-20] MEDS: glipiZIDE 10 MG TABLET PO SCH (08:09)
[2017-02-20] MEDS: PANTOPRAZOLE 40 MG TABLET PO SCH (08:10)
[2017-02-20] MEDS: amLODIPine 10 MG TABLET PO SCH (08:10)
[2017-02-20] MEDS: metFORMIN 500 MG TABLET PO SCH ×2 (08:10→17:11)
[2017-02-20] MEDS: GABAPENTIN 300 MG CAPSULE PO SCH ×3 (08:10→20:16)
[2017-02-20] MEDS: MONTELUKAST 10 MG TABLET PO SCH (08:10)
[2017-02-20] MEDS: ASPIRIN EC 325 MG TABLET PO SCH (08:10)
[2017-02-20] MEDS: DOCUSATE SODIUM 100 MG CAPSULE PO SCH ×2 (08:10→20:15)
[2017-02-20] MEDS: ASCORBIC ACID 500 MG TABLET PO SCH ×2 (08:10→20:15)
[2017-02-20] MEDS: methylPREDNISolone SOD SUC 40 MG/1 ML VIAL IV SCH ×2 (08:11→20:16)
[2017-02-20] MEDS: BUDESONIDE/FORMOTEROL 160-4.5 INHALER 6 GM INH SCH ×2 (08:12→20:18)
[2017-02-20] MEDS: FLUTICASONE 50 MCG NASAL SPRAY 16 GM BOTTLE BOTH NARES SCH (08:12)
[2017-02-20] MEDS: LEVOFLOXACIN INJ 500 MG in PREMIX 1 EACH IV SCH (08:18)
[2017-02-20] MEDS: SODIUM CHLORIDE 0.45% 1,000 ML IV SCH ×2 (08:26→21:03)
--- NOTE | 2017-02-20 13:13 | Pulmonology Progress Note ---
Pulmonary - PN: Subj Interval history: This is a 66-year-old black female who has asthma and is admitted with asthmatic bronchitis. She had been doing a lot better. Today she complains bitterly of wheezing cough inability to mobilize her sputum. My exam she has coarse large airway congestion over the trachea and she also has a tracheal and large airway wheeze. I have added Singulair 10 mg 2 daily to her regimen. Looks like she is probably going to need to be in the hospital a little longer. Microbiology. No results reported. Lab. Glucoses are up a little bit. Labs been reviewed. 02/20/2017. Today the patient is moving air much better and her tracheal and large airway wheezes beginning to significantly improved. She is pleased with this. Electrolytes are normal. Creatinine is 0.80 white blood cell count is 14 ,300. H&H 11.5/35.0 and platelets of 319,000. There are no new reports from microbiology. Labs been reviewed and medicines have been reviewed. Physical exam. Vital signs. See below Psychiatric oriented 3 Neurologic. Cranial nerves are intact long track motor functions intact. Gait was not tested Face is symmetrical. No swelling of lips or tongue. Neck. Symmetrical. No meningismus. Chest. Tracheal and large airway wheeze and associated congestion noted on 2016 is improved significantly. There is still a mild tracheal and large airway wheeze but patient is moving air much better and is much less congestion she has been able to mobilize her sputum.. No chest wall tenderness Heart no gallop Abdomen. Positive bowel sounds Extremities nothing to suggest deep venous thrombophlebitis. The remainder the physical exam is negative. Plan. 02/19/2017 1. Add Singulair 2. Continue present regimen 3. Healing of the patient's glucoses are up I do not think we should decrease her Solu-Medrol beyond her present 20 mg IV push every 12 hours 02/20/2017. 1. See today's note above. Exam (Progress Note) - Constitutional Vitals: Period Temp Pulse Resp BP Sys/Giron Pulse Ox Last 24 Hr 96.7 F-97.7 F 78-96 16-22 134-156/70-82 95-100 Results - Labs CBC & BMP: 02/20/17 03:43 02/20/17 03:43
[2017-02-20] MEDS: traMADol 50 MG TABLET PO PRN (13:17)
--- NOTE | 2017-02-20 13:35 | Internal Med Progress Note ---
Assessment and Plan (1) exacerbation of COPD Status: Acute Current Visit: Yes (2) type 2 diabetes mellitus Status: Chronic Current Visit: Yes (3) CAD (coronary artery disease) Status: Chronic Current Visit: No Qualifiers: Coronary Disease-Associated Artery/Lesion type: [place] artery [place] vs. transplanted heart: [place] heart (4) Dyslipidemia Status: Chronic Current Visit: No (5) Hx of CABG Status: Chronic Current Visit: No (6) Hypertension Status: Chronic Current Visit: Yes Qualifiers: Hypertension type: essential hypertension Qualified Code(s): I10 - Essential (primary) hypertension Internal Medicine - PN: Subj Interval history: This is a 66 year old female patient of Dr. Amin with history of HTN, DM, CAD , CABG, dyslipidemia, COPD, who presented to ER with COPD exacerbation. She is improving, but today complained of coughing. Hyperglycemic and decreased Solumedrol. She is feeling better today, but not well enough to go home. Continuing treatment. Exam (Progress Note) - Constitutional Vitals: Period Temp Pulse Resp BP Sys/Giron Pulse Ox Last 24 Hr 96.7 F-97.7 F 78-96 16-22 134-156/70-82 95-100 Exam: General appearance: no acute distress - Respiratory Respiratory exam: Present: expiratory rhonchi right lung; left lung largely clear - Cardiovascular Cardiovascular exam: Present: regular rate and rhythm - GI/Abdominal GI/Abdominal exam: Present: soft. Absent: tenderness - Extremities Exam Extremities exam: Absent: edema - Neurological Exam Neurological exam: Present: alert - Psychiatric Psychiatric exam: Present: normal affect - Skin Skin exam: Present: warm, dry Results - Labs CBC & BMP: 02/20/17 03:43 02/20/17 03:43
[2017-02-20] MEDS ORDERED: INSULIN DETEMIR 100 UNIT/ML SUBCUT SCH (14:00)
[2017-02-20] MEDS: MAGNESIUM HYDROXIDE SUSP 30 ML UDCUP PO SCH ×2 (15:23→21:03)
[2017-02-20] MEDS: PRAVASTATIN 40 MG TABLET PO SCH (20:16)
[2017-02-21] MEDS: ALBUTEROL/IPRATROPIUM 3 ML NEB RESP TX SCH ×7 (00:02→23:58)
[2017-02-21] MEDS: MAGNESIUM HYDROXIDE SUSP 30 ML UDCUP PO SCH ×3 (05:08→21:16)
[2017-02-21 05:22] LABS: Basophils % 0.1 % (0.0-0.8); Eosinophils % 0.1 % (0.00-10.9); Hemoglobin 11.3 GM/DL (12.0-16.0); Immature Granulocytes % 6.2 %; Immature Granulocytes Absolute 1.04 #; Lymphocytes # 1.6 10*3/uL (1.4-4.0); Lymphocytes % 9.3 % (21.3-54.2); Mean Corpuscular HGB Conc 32.3 GM/DL (32-36); Mean Corpuscular Hemoglobin 26 PG (27-34); Mean Corpuscular Volume 80.8 FL (87-102); Mean Platelet Volume 9.5 FL (9.6-12.0); Monocytes # 0.8 10*3/uL (0.11-0.8); Neutrophils # 13.3 10*3/uL (1.4-7.4); Neutrophils % 79.3 % (38.7-73.9); Platelet Count 333 T/CUMM (130-400); Red Blood Count 4.33 MC/CUMM (3.8-5.5); Red Cell Distribution Width 13.8 % (9.3-17.3); White Blood Count 16.7 T/CUMM (4-12)
[2017-02-21 06:08] LABS: Albumin 2.6 G/DL (3.4-5.0); Bilirubin,Total 0.8 MG/DL (0.2-1.0); Calcium 8.4 MG/DL (8.5-10.1); Osmolality,Calculated 288.7 MOS/KG (273-304); Potassium 4.8 MMOL/L (3.5-5.1); Total Protein 5.6 G/DL (6.4-8.3)
[2017-02-21 07:52] LABS: Lymphocytes 13 % (20-55); Platelet Estimate Normal; Segmented Neutrophils 82 % (50-85); Total Cells Counted 100
--- NOTE | 2017-02-21 08:46 | Pulmonology Progress Note ---
Pulmonary - PN: Subj Interval history: This is a 66-year-old lady that has asthma and is in with an acute exacerbation. She is clearly better. Minimal expiratory rhonchi. Could be changed to oral medications and discharged. Exam (Progress Note) - Constitutional Vitals: Period Temp Pulse Resp BP Sys/Giron Pulse Ox Last 24 Hr 97.5 F-98.1 F 75-89 16-22 125-137/68-78 97-100 Exam: Patient is alert oriented vital signs normal. Pupils react to light. Throat is clear. Neck supple no bruits. Chest reveals prolonged expiratory phase no active wheezing. Heart normal rate rhythm no murmurs. Abdomen soft nontender no masses. Extremities no clubbing cyanosis or edema. Calves nontender. Results - Labs CBC & BMP: 02/21/17 04:18 02/21/17 04:18 Lab Results: I have reviewed the past 24 hour labs Assessment and Plan (1) Asthmatic bronchitis with acute exacerbation Status: Acute Assessment and plan: Lungs are sounding much better. Changed to oral medications. Defer to primary service as far as discharge. Dr. Theodore Oh follows outpatient. Current Visit: Yes (2) type 2 diabetes mellitus Status: Chronic Assessment and plan: Blood sugars remain a little high. Decreasing steroid should help. Current Visit: Yes
[2017-02-21] MEDS ORDERED: INSULIN GLARGINE 100 UNIT/ML SUBCUT SCH ×2 (09:00→21:00)
[2017-02-21] MEDS: LEVOFLOXACIN INJ 500 MG in PREMIX 1 EACH IV SCH (10:27)
[2017-02-21] MEDS: ASCORBIC ACID 500 MG TABLET PO SCH ×2 (10:28→20:34)
[2017-02-21] MEDS: MAGNESIUM OXIDE 400 MG TABLET PO SCH ×2 (10:28→20:34)
[2017-02-21] MEDS: GABAPENTIN 300 MG CAPSULE PO SCH ×3 (10:28→20:34)
[2017-02-21] MEDS: CALCIUM (CITRATE)/VITAMIN D 200 MG-125 UNIT TABLET PO SCH ×2 (10:28→20:36)
[2017-02-21] MEDS: amLODIPine 10 MG TABLET PO SCH (10:28)
[2017-02-21] MEDS: metFORMIN 500 MG TABLET PO SCH ×2 (10:29→16:45)
[2017-02-21] MEDS: glipiZIDE 10 MG TABLET PO SCH (10:29)
[2017-02-21] MEDS: BENZONATATE 100 MG CAPSULE PO SCH ×3 (10:29→20:35)
[2017-02-21] MEDS: CARVEDILOL 3.125 MG TABLET PO SCH ×2 (10:29→20:36)
[2017-02-21] MEDS: DOCUSATE SODIUM 100 MG CAPSULE PO SCH ×2 (10:29→20:35)
[2017-02-21] MEDS: ASPIRIN EC 325 MG TABLET PO SCH (10:29)
[2017-02-21] MEDS: MONTELUKAST 10 MG TABLET PO SCH (10:30)
[2017-02-21] MEDS: PANTOPRAZOLE 40 MG TABLET PO SCH (10:30)
[2017-02-21] MEDS: ACETAMINOPHEN 325 MG TABLET PO PRN (10:44)
[2017-02-21] MEDS: INSULIN GLARGINE 100 UNIT/ML SUBCUT SCH (10:47)
[2017-02-21] MEDS: INSULIN LISPRO 100 UNIT/ML SUBCUT SCH ×4 (10:47→21:15)
[2017-02-21] MEDS: FLUTICASONE 50 MCG NASAL SPRAY 16 GM BOTTLE BOTH NARES SCH (10:48)
[2017-02-21] MEDS: LEVOFLOXACIN 500 MG TABLET PO SCH (10:49)
[2017-02-21] MEDS: BUDESONIDE/FORMOTEROL 160-4.5 INHALER 6 GM INH SCH ×3 (10:49→21:13)
[2017-02-21] MEDS: predniSONE 20 MG TABLET PO SCH (10:49)
[2017-02-21] MEDS: SODIUM CHLORIDE 0.45% 1,000 ML IV SCH (10:51)
--- NOTE | 2017-02-21 19:46 | Internal Med Progress Note ---
Assessment and Plan (1) exacerbation of COPD Status: Acute Current Visit: Yes (2) type 2 diabetes mellitus Status: Chronic Current Visit: Yes (3) CAD (coronary artery disease) Status: Chronic Current Visit: No Qualifiers: Coronary Disease-Associated Artery/Lesion type: [place] artery [place] vs. transplanted heart: [place] heart (4) Dyslipidemia Status: Chronic Current Visit: No (5) Hx of CABG Status: Chronic Current Visit: No (6) Hypertension Status: Chronic Current Visit: Yes Qualifiers: Hypertension type: essential hypertension Qualified Code(s): I10 - Essential (primary) hypertension Internal Medicine - PN: Subj Interval history: This is a 66 year old female patient of Dr. Amin with history of HTN, DM, CAD , CABG, dyslipidemia, COPD, who presented to ER with COPD exacerbation. She is improving, but today complained of coughing. Hyperglycemic and decreased Solumedrol. She is feeling better today, but not well enough to go home. Continuing treatment. She does not yet want to go home, but stay another day or two. Hyperglycemia with Solumedrol. Exam (Progress Note) - Constitutional Vitals: Period Temp Pulse Resp BP Sys/Giron Pulse Ox Last 24 Hr 97.3 F-98.1 F 75-89 18-22 116-142/69-78 97-100 Exam: General appearance: no acute distress - Respiratory Respiratory exam: Present: expiratory rhonchi right lung unchanged; left lung largely clear - Cardiovascular Cardiovascular exam: Present: regular rate and rhythm - GI/Abdominal GI/Abdominal exam: Present: soft. Absent: tenderness - Extremities Exam Extremities exam: Absent: edema - Neurological Exam Neurological exam: Present: alert - Psychiatric Psychiatric exam: Present: normal affect - Skin Skin exam: Present: warm, dry Results - Labs CBC & BMP: 02/21/17 04:18 02/21/17 04:18
[2017-02-21] MEDS: PRAVASTATIN 40 MG TABLET PO SCH (20:35)
[2017-02-21] MEDS: BUDESONIDE 0.25 MG/2 ML NEB RESP TX SCH (23:58)
[2017-02-22] MEDS: SODIUM CHLORIDE 0.45% 1,000 ML IV SCH (02:32)
[2017-02-22] MEDS: ACETAMINOPHEN 325 MG TABLET PO PRN ×2 (02:35→08:41)
[2017-02-22] MEDS: ALBUTEROL/IPRATROPIUM 3 ML NEB RESP TX SCH ×3 (03:20→10:14)
[2017-02-22] MEDS: MAGNESIUM HYDROXIDE SUSP 30 ML UDCUP PO SCH (05:30)
[2017-02-22] MEDS: BUDESONIDE 0.25 MG/2 ML NEB RESP TX SCH (06:43)
[2017-02-22] MEDS: INSULIN LISPRO 100 UNIT/ML SUBCUT SCH ×2 (07:39→12:32)
[2017-02-22 07:54] VITALS: BP 139/77
[2017-02-22] MEDS: INSULIN GLARGINE 100 UNIT/ML SUBCUT SCH (08:29)
[2017-02-22] MEDS: amLODIPine 10 MG TABLET PO SCH (08:37)
[2017-02-22] MEDS: DOCUSATE SODIUM 100 MG CAPSULE PO SCH (08:37)
[2017-02-22] MEDS: glipiZIDE 10 MG TABLET PO SCH (08:37)
[2017-02-22] MEDS: ASPIRIN EC 325 MG TABLET PO SCH (08:38)
[2017-02-22] MEDS: MAGNESIUM OXIDE 400 MG TABLET PO SCH (08:38)
[2017-02-22] MEDS: predniSONE 20 MG TABLET PO SCH (08:38)
[2017-02-22] MEDS: ASCORBIC ACID 500 MG TABLET PO SCH (08:39)
[2017-02-22] MEDS: BENZONATATE 100 MG CAPSULE PO SCH (08:39)
[2017-02-22] MEDS: CALCIUM (CITRATE)/VITAMIN D 200 MG-125 UNIT TABLET PO SCH (08:39)
[2017-02-22] MEDS: MONTELUKAST 10 MG TABLET PO SCH (08:39)
[2017-02-22] MEDS: metFORMIN 500 MG TABLET PO SCH (08:39)
[2017-02-22] MEDS: PANTOPRAZOLE 40 MG TABLET PO SCH (08:40)
[2017-02-22] MEDS: LEVOFLOXACIN 500 MG TABLET PO SCH (08:40)
[2017-02-22] MEDS: GABAPENTIN 300 MG CAPSULE PO SCH (08:40)
[2017-02-22] MEDS: CARVEDILOL 3.125 MG TABLET PO SCH (08:40)
[2017-02-22] MEDS: FLUTICASONE 50 MCG NASAL SPRAY 16 GM BOTTLE BOTH NARES SCH (08:41)
[2017-02-22] MEDS: BUDESONIDE/FORMOTEROL 160-4.5 INHALER 6 GM INH SCH (08:43)
--- NOTE | 2017-02-22 09:21 | Pulmonology Progress Note ---
Pulmonary - PN: Subj Interval history: This is a 66-year-old lady that has asthma and is in with an acute exacerbation. She is clearly better. Minimal expiratory rhonchi. Could be changed to oral medications and discharged. 02/22/2017 patient is complaining of some chest wall pain today. Otherwise doing well. Exam (Progress Note) - Constitutional Vitals: Period Temp Pulse Resp BP Sys/Giron Pulse Ox Last 24 Hr 97.3 F-98.3 F 75-83 16-22 111-142/63-77 97-100 Exam: Patient is alert oriented vital signs normal. Pupils react to light. Throat is clear. Neck supple no bruits. Chest reveals prolonged expiratory phase no active wheezing. Heart normal rate rhythm no murmurs. Abdomen soft nontender no masses. Extremities no clubbing cyanosis or edema. Calves nontender. Little change from yesterday. Results - Labs CBC & BMP: 02/21/17 04:18 02/21/17 04:18 Lab Results: I have reviewed the past 24 hour labs Assessment and Plan (1) Asthmatic bronchitis with acute exacerbation Status: Acute Assessment and plan: Lungs are sounding much better. Changed to oral medications. Defer to primary service as far as discharge. Dr. Theodore Oh follows outpatient. 02/22/2017 patient is improved from acute exacerbation of asthma. Current Visit: Yes (2) type 2 diabetes mellitus Status: Chronic Assessment and plan: Blood sugars remain a little high. Decreasing steroid should help. 02/22/2017 glucoses are little better since we decreased steroids yesterday. Current Visit: Yes
--- NOTE | 2017-02-22 09:29 | Internal Med Progress Note ---
Assessment and Plan (1) Asthmatic bronchitis with acute exacerbation Status: Acute Assessment and plan: improved , on levaquin. Current Visit: Yes (2) Hypertension Status: Chronic Assessment and plan: continue antihypertensives, d/c ivf today Current Visit: Yes Qualifiers: Hypertension type: essential hypertension Qualified Code(s): I10 - Essential (primary) hypertension (3) type 2 diabetes mellitus Status: Chronic Assessment and plan: continue oral meds and insulin, Current Visit: Yes (4) CAD (coronary artery disease) Status: Chronic Assessment and plan: continue meds as advised. Current Visit: No Qualifiers: Coronary Disease-Associated Artery/Lesion type: [place] artery [place] vs. transplanted heart: [place] heart Internal Medicine - PN: Subj Interval history: PCP: Dr. Amin, Patient seen and examined on the second floor bed, No overnight events reported by the nurse, or history given by the patient. No history of fever, nausea, vomiting, chest pain, shortness of breath since yesterday. Last fingerstick glucose 116. Discussed options of discharge today, cleared by punch operator, patient refused to go, wants to complete the antibiotics inpatient. Patient's wants to see her PCP, ,, before getting discharged. Eating well, bowel and bladder movements regular. Inquired about personal stressors at home, patient denies. , Exam (Progress Note) - Constitutional Vitals: Period Temp Pulse Resp BP Sys/Giron Pulse Ox Last 24 Hr 97.3 F-98.3 F 75-83 16-22 111-142/63-77 97-100 Exam: GENERAL APPEARANCE: alert and oriented, pleasant, in no acute distress, sitting in the bed HEENT: normal. EYES: extraocular movement intact (EOMI), NECK/THYROID: neck supple, full range of motion, no cervical lymphadenopathy, no thyromegaly. HEART: regular rate and rhythm, no murmurs, rubs, gallops. LUNGS: Bilateral rhonchi. ABDOMEN: soft, nontender, nondistended, no organomegaly , bowel sounds present. EXTREMITIES: no edema. NEUROLOGIC: alert and oriented, cranial nerves 2-12 grossly intact, Results - Labs CBC & BMP: 02/21/17 04:18 02/21/17 04:18 Lab Results: I have reviewed the past 24 hour labs
--- NOTE | 2017-02-22 10:34 | Discharge Summary ---
<Pablo Rivas - Last Filed: 02/23/17 13:35> Hospital Course - Hospital Course Hospital Course: PCP: Dr. Amin, 66-year-old black female admitted for progressive cough and congestion,SOB, fever on 02/14/2017. Symptoms were progressively gotten worse at the time of clinic visit. Patient was admitted from the clinic.History of type 2 diabetes, coronary artery disease status post CABG, dyslipidemia, hypertension, Patient admitted for COPD/asthamatic exacerbation. Patient failed outpatient treatment. Chest x-ray showed chronic scarring in the right upper lobe, progressive atelectasis) pulmonology consult was done during the hospital stay. Patient received Levaquin while in the hospital, and discharged with oral Levaquin, inhalers/bronchodilators continued, patient was treated with IV steroids later switched to oral, Her diabetes medications were adjusted during the hospital stay. Patient's glucose readings were fluctuating since she was on steroids. Daily labs were followed . WBC count was high initially which came down gradually during the hospital stay. H&H was stable ,last H&H .. Patient gradually improved during the hospital stay. was discharged once finish production manager cleared the patient Diagnosis - Discharge Diagnosis (1) Asthmatic bronchitis with acute exacerbation Status: Resolved (2) Hypertension Status: Chronic (3) type 2 diabetes mellitus Status: Chronic (4) CAD (coronary artery disease) Status: Chronic (5) Generalized anxiety disorder Status: Acute (6) Dyslipidemia Status: Chronic Specialty Discharge - Follow Up or Referrals Follow up with: Addi Bernstein MD [Physician] - 2 Weeks Luis Antonio Amin DO [Primary Care Provider] - 1 Week (With chest x-ray) Discharge Plan - Discharge Data Disposition: Disch To Home/Self Care Condition at Discharge: Stable Discharge Diet: diabetic diet, low salt diet Activity: resume usual activities as tolerated Hygiene: no restrictions - Discharge Medications New RX: Benzonatate [Tessalon] 100 mg PO TID #30 capsule RX: Docusate Sodium Cap [Colace Cap] 100 mg PO BID capsule RX: metFORMIN [Glucophage] 500 mg PO BID W/MEALS #0 tablet RX: predniSONE TAB [PredniSONE] 20 mg PO DAILY #0 tablet RX: Levofloxacin Tab [Levaquin Tab] 500 mg PO DAILY #0 tablet Continue RX: Calcium (Citr)/Vit D 200-125 [Citracal + D] 1 tablet PO BID RX: glipiZIDE [Glipizide] 10 mg PO DAILY RX: Pravastatin Sodium 40 mg PO BEDTIME RX: Magnesium Oxide [Magox 400] 400 mg PO BID RX: Furosemide Tab [Lasix Tab] 20 mg PO DAILY PRN PRN Reason: CHF RX: Nitroglycerin Sl Tab [Nitrostat] 0.4 mg SL Q5M PRN #25 tablet PRN Reason: Chest Pain RX: Carvedilol 3.125 mg PO BID RX: amLODIPine [Norvasc] 10 mg PO DAILY #90 tablet RX: Ipratropium/Albuterol Inhaler [Combivent Respimat Inhaler] 1 puff INH BID PRN PRN Reason: Shortness Of Breath RX: Acetaminophen Tab [Tylenol Tab] 325 mg PO BID #14 bottle RX: Aspirin EC Tab 325 mg PO DAILY RX: Gabapentin 300 mg PO TID RX: Ascorbic Acid [Vitamin C Chew Tab] 1,000 mg PO BID RX: Tramadol HCl [Tramadol Tab] 50 mg PO BID PRN PRN Reason: Pain Discontinued RX: metFORMIN [Glucophage] 500 mg PO BID W/MEALS - Follow Up or Referral Follow Up: Luis Antonio Amin DO [Primary Care Provider] - 1 Week (With chest x-ray) Addi Bernstein MD [Physician] - 2 Weeks - Forms/Instructions Instructions: Asthma (GEN), Acute Bronchitis (GEN) Exam - Constitutional Exam: GENERAL APPEARANCE: alert and oriented, pleasant, in no acute distress, sitting in the bed HEENT: normal. EYES: extraocular movement intact (EOMI), NECK/THYROID: neck supple, full range of motion, no cervical lymphadenopathy, no thyromegaly. HEART: regular rate and rhythm, no murmurs, rubs, gallops. LUNGS: Bilateral rhonchi. No wheezes ABDOMEN: soft, nontender, nondistended, no organomegaly , bowel sounds present. EXTREMITIES: no edema. NEUROLOGIC: alert and oriented, cranial nerves 2-12 grossly intact, DS: Provider Date of admission: 02/14/17 11:12 Primary care physician: Luis Antonio Amin DO Attending physician on admission: Luis Antonio Amin DO Consults: 02/16/17 08:18 Consult to Physician [CONS] Routine Comment: Has seen in the past Consulting Provider: Gaetano Oh Person Notified: cyrus Date Notified: 02/16/17 Consult Notification Comment: left message on the phone and Cyrus called back and stated she got my message and would tell Dr. Oh. Discharging clinician: Pablo Rivas MD Expected date of discharge: 02/22/17 <Luis Antonio Amin - Last Filed: 02/25/17 15:25> Diagnosis - Discharge Diagnosis (1) exacerbation of COPD Status: Acute (2) type 2 diabetes mellitus Status: Chronic (3) Hx of CABG Status: Chronic (4) CAD (coronary artery disease) Status: Chronic (5) Dyslipidemia Status: Chronic (6) Hypertension Status: Chronic (7) polyneuropathy Status: Chronic
== END 2017-02-22 13:25 | disposition home or self-care (01) | DRG 191 ==
LOC: N.2E 11:12
PROVIDERS: ADMIT Family Medicine; ATTEND Family Medicine

== ENCOUNTER 2018-02-17 23:05 | Inpatient (IN) ==
[2018-02-18] MEDS ORDERED: PANTOPRAZOLE 40 MG VIAL IV STA (00:52)
[2018-02-18] MEDS ORDERED: SODIUM CHLORIDE 0.9% 500 ML IV STA (00:52)
[2018-02-18] MEDS ORDERED: ALUM/MAG/SIMETH/LIDO VISC 1:1 30 ML BOTTLE PO STA (00:52)
[2018-02-18] MEDS ORDERED: ONDANSETRON 4 MG/2 ML VIAL IV STA (00:52)
[2018-02-18 02:04] LABS: Basophils % 0.3 % (0.0-0.8); Eosinophils % 0.2 % (0.00-10.9); Hematocrit 39.4 VOL% (35.7-47.0); Hemoglobin 12.7 GM/DL (12.0-16.0); Immature Granulocytes % 0.3 %; Immature Granulocytes Absolute 0.03 #; Lymphocytes # 1.5 10*3/uL (1.4-4.0); Lymphocytes % 13.8 % (21.3-54.2); Mean Corpuscular HGB Conc 32.2 GM/DL (32-36); Mean Corpuscular Hemoglobin 26 PG (27-34); Mean Corpuscular Volume 79.9 FL (87-102); Mean Platelet Volume 8.9 FL (9.6-12.0); Monocytes # 0.6 10*3/uL (0.11-0.8); Monocytes % 5.3 % (1.7-12.7); Neutrophils # 8.8 10*3/uL (1.4-7.4); Neutrophils % 80.1 % (38.7-73.9); Platelet Count 315 T/CUMM (130-400); Red Blood Count 4.93 MC/CUMM (3.8-5.5); Red Cell Distribution Width 14.2 % (9.3-17.3)
[2018-02-18 02:20] LABS: Lactic Acid 1.5 MMOL/L (0.4-2.0)
[2018-02-18 02:22] LABS: Alanine Aminotransferase 19 U/L (13-56); Albumin 3.8 G/DL (3.4-5.0); Alkaline Phosphatase 240 U/L (45-117); Amylase 50 U/L (25-115); Aspartate Amino Transferase 15 U/L (0-37); Blood Urea Nitrogen 14 MG/DL (7-18); Calcium 9.8 MG/DL (8.5-10.1); Glucose 335 MG/DL (74-106); Osmolality,Calculated 279.4 MOS/KG (273-304); Potassium 4.3 MMOL/L (3.5-5.1); Sodium 133 MMOL/L (136-145); Total Protein 8.5 G/DL (6.4-8.3); Troponin I Only < 0.015 NG/ML (0.00-0.045)
[2018-02-18 03:00] LABS: Apearance,Urine CLEAR (Clear); Bilirubin,Urine Negative (Negative); Blood, Urine Negative (Negative); Glucose,Urine (UA) >=500 mg/dL (Negative); Hyaline Casts,Urine 7 /LPF (0-3); Ketones,Urine Negative (Negative); Mucus,Urine Occasional /LPF (Occasional); Nitrite,Urine Negative (Negative); Protein,Urine Negative; RBC,Urine 2 /HPF (0-4); Urine Color Straw (Yellow); Urine Specific Gravity 1.008 (1.001-1.035); Urine Urobilinogen < 2.0 EU/DL (0.2-1.0); WBC,Urine <1 /HPF (0-6)
[2018-02-18] MEDS ORDERED: NITROGLYCERIN SL 0.4 MG TABLET SL PRN (04:22)
[2018-02-18] MEDS ORDERED: GLUCAGON 1 MG VIAL IM PRN (04:22)
[2018-02-18] MEDS ORDERED: ACETAMINOPHEN 325 MG TABLET PO PRN (04:22)
[2018-02-18] MEDS ORDERED: BISACODYL 5 MG TABLET PO PRN (04:22)
[2018-02-18] MEDS ORDERED: DOCUSATE SODIUM 100 MG CAPSULE PO PRN (04:22)
[2018-02-18] MEDS ORDERED: MAGNESIUM CITRATE 300 ML BOTTLE PO PRN ×2 (04:22)
[2018-02-18] MEDS ORDERED: ONDANSETRON 4 MG/2 ML VIAL IV PRN (04:22)
[2018-02-18] MEDS ORDERED: MORPHINE 4 MG/1 ML VIAL IV PRN (04:22)
[2018-02-18] MEDS ORDERED: DEXTROSE 50% 25 GM/50 ML VIAL IV PRN (04:22)
[2018-02-18] MEDS ORDERED: ALBUTEROL/IPRATROPIUM 3 ML NEB RESP TX PRN (04:22)
[2018-02-18] MEDS ORDERED: FUROSEMIDE 20 MG TABLET PO PRN (04:22)
[2018-02-18] MEDS: SODIUM CHLORIDE 0.9% 1,000 ML IV SCH ×3 (05:07→20:20)
[2018-02-18] MEDS: metroNIDAZOLE INJ 500 MG in PREMIX 1 EACH IV SCH ×3 (05:08→21:32)
[2018-02-18] MEDS: PIPERACILLIN/TAZOBACTAM 3,375 MG in SODIUM CHLORIDE 0.9% 100 ML IV SCH ×3 (06:35→22:50)
[2018-02-18] MEDS ORDERED: MAGNESIUM HYDROXIDE SUSP 30 ML UDCUP PO ONE (07:54)
[2018-02-18] MEDS ORDERED: METOCLOPRAMIDE 10 MG/2 ML VIAL IV ONE (07:54)
[2018-02-18] MEDS ORDERED: SODIUM PHOSPHATE ENEMA 133 ML BOTTLE RECTAL ONE (07:54)
[2018-02-18] MEDS ORDERED: LORazepam 2 MG/1 ML VIAL IV ONE (07:54)
[2018-02-18] MEDS: glipiZIDE 10 MG TABLET PO SCH (09:28)
[2018-02-18] MEDS: amLODIPine 10 MG TABLET PO SCH (09:28)
[2018-02-18] MEDS: ASCORBIC ACID 500 MG TABLET PO SCH ×2 (09:28→21:36)
[2018-02-18] MEDS: sitaGLIPtin 100 MG TABLET PO SCH (09:28)
[2018-02-18] MEDS: GABAPENTIN 300 MG CAPSULE PO SCH ×2 (09:28→21:35)
[2018-02-18] MEDS: FAMOTIDINE 20 MG TABLET PO SCH ×2 (09:28→21:35)
[2018-02-18] MEDS: CALCIUM (CITRATE)/VITAMIN D 200 MG-125 UNIT TABLET PO SCH ×2 (09:28→21:35)
[2018-02-18] MEDS: PIOGLITAZONE 15 MG TABLET PO SCH (09:28)
[2018-02-18] MEDS: POTASSIUM CHLORIDE 20 MEQ TABLET PO SCH (09:28)
[2018-02-18] MEDS: INSULIN REGULAR 100 UNIT/ML SUBCUT SCH ×4 (09:29→23:22)
[2018-02-18] MEDS: CARVEDILOL 3.125 MG TABLET PO SCH ×2 (09:29→21:36)
[2018-02-18] MEDS: MAGNESIUM OXIDE 400 MG TABLET PO SCH ×2 (09:29→21:35)
[2018-02-18] MEDS: ASPIRIN EC 325 MG TABLET PO SCH (09:29)
[2018-02-18] MEDS: DOCUSATE SODIUM 100 MG CAPSULE PO SCH ×2 (09:29→21:36)
[2018-02-18] MEDS: ENOXAPARIN 40 MG/0.4 ML SYRINGE SUBCUT SCH (09:30)
[2018-02-18] MEDS: LACTULOSE 20 GM/30 ML UDCUP PO SCH ×4 (09:30→21:34)
[2018-02-18] MEDS: PANTOPRAZOLE 40 MG VIAL IV SCH (09:37)
[2018-02-18] MEDS ORDERED: SODIUM CHLORIDE 0.9% 1,000 ML IV ONE (12:42)
[2018-02-18] MEDS: PRAVASTATIN 40 MG TABLET PO SCH (21:36)
[2018-02-19] MEDS: INSULIN REGULAR 100 UNIT/ML SUBCUT SCH ×4 (00:39→17:55)
[2018-02-19] MEDS: metroNIDAZOLE INJ 500 MG in PREMIX 1 EACH IV SCH ×3 (04:51→21:11)
[2018-02-19] MEDS: SODIUM CHLORIDE 0.9% 1,000 ML IV SCH ×3 (04:55→20:00)
[2018-02-19 05:53] LABS: Basophils % 0.3 % (0.0-0.8); Eosinophils # 0.1 10*3/uL (0.0-0.87); Eosinophils % 1.6 % (0.00-10.9); Hematocrit 32.7 VOL% (35.7-47.0); Hemoglobin 10.3 GM/DL (12.0-16.0); Immature Granulocytes % 0.5 %; Immature Granulocytes Absolute 0.04 #; Lymphocytes # 1.4 10*3/uL (1.4-4.0); Mean Corpuscular HGB Conc 31.5 GM/DL (32-36); Mean Corpuscular Hemoglobin 25 PG (27-34); Mean Corpuscular Volume 80.7 FL (87-102); Mean Platelet Volume 9.6 FL (9.6-12.0); Monocytes # 0.4 10*3/uL (0.11-0.8); Monocytes % 5.5 % (1.7-12.7); Neutrophils # 5.5 10*3/uL (1.4-7.4); Neutrophils % 73.1 % (38.7-73.9); Platelet Count 279 T/CUMM (130-400); Red Blood Count 4.05 MC/CUMM (3.8-5.5); Red Cell Distribution Width 14.4 % (9.3-17.3); White Blood Count 7.5 T/CUMM (4-12)
[2018-02-19] MEDS: PIPERACILLIN/TAZOBACTAM 3,375 MG in SODIUM CHLORIDE 0.9% 100 ML IV SCH ×3 (05:57→22:15)
[2018-02-19 06:28] LABS: Albumin 2.8 G/DL (3.4-5.0); Bilirubin,Total 0.8 MG/DL (0.2-1.0); Calcium 8.4 MG/DL (8.5-10.1); Potassium 3.9 MMOL/L (3.5-5.1); Total Protein 6.1 G/DL (6.4-8.3)
[2018-02-19] MEDS: amLODIPine 10 MG TABLET PO SCH (08:52)
[2018-02-19] MEDS: CARVEDILOL 3.125 MG TABLET PO SCH ×2 (08:52→21:15)
[2018-02-19] MEDS: glipiZIDE 10 MG TABLET PO SCH (08:52)
[2018-02-19] MEDS: FAMOTIDINE 20 MG TABLET PO SCH ×2 (08:52→21:14)
[2018-02-19] MEDS: GABAPENTIN 300 MG CAPSULE PO SCH ×2 (08:52→21:14)
[2018-02-19] MEDS: POTASSIUM CHLORIDE 20 MEQ TABLET PO SCH (08:52)
[2018-02-19] MEDS: PIOGLITAZONE 15 MG TABLET PO SCH (08:52)
[2018-02-19] MEDS: CALCIUM (CITRATE)/VITAMIN D 200 MG-125 UNIT TABLET PO SCH ×2 (08:52→21:15)
[2018-02-19] MEDS: ENOXAPARIN 40 MG/0.4 ML SYRINGE SUBCUT SCH (08:53)
[2018-02-19] MEDS: MAGNESIUM OXIDE 400 MG TABLET PO SCH ×2 (08:53→21:13)
[2018-02-19] MEDS: sitaGLIPtin 100 MG TABLET PO SCH (08:53)
[2018-02-19] MEDS: ASPIRIN EC 325 MG TABLET PO SCH (08:53)
[2018-02-19] MEDS: LACTULOSE 20 GM/30 ML UDCUP PO SCH ×2 (08:53→13:52)
[2018-02-19] MEDS: ASCORBIC ACID 500 MG TABLET PO SCH ×2 (08:53→21:14)
[2018-02-19] MEDS: PANTOPRAZOLE 40 MG VIAL IV SCH (08:55)
[2018-02-19] MEDS: DOCUSATE SODIUM 100 MG CAPSULE PO SCH ×2 (08:55→21:15)
[2018-02-19] MEDS: traMADol 50 MG TABLET PO PRN ×2 (09:01→19:03)
[2018-02-19] MEDS: HYOSCYAMINE 0.125 MG TABLET PO SCH ×2 (12:06→21:14)
[2018-02-19] MEDS: PRAVASTATIN 40 MG TABLET PO SCH (21:15)
[2018-02-20] MEDS: INSULIN REGULAR 100 UNIT/ML SUBCUT SCH ×4 (00:52→18:03)
[2018-02-20] MEDS: metroNIDAZOLE INJ 500 MG in PREMIX 1 EACH IV SCH ×3 (04:37→17:29)
[2018-02-20] MEDS: PIPERACILLIN/TAZOBACTAM 3,375 MG in SODIUM CHLORIDE 0.9% 100 ML IV SCH ×3 (06:09→20:41)
[2018-02-20] MEDS ORDERED: SODIUM PHOSPHATE ENEMA 133 ML BOTTLE RECTAL ONE (07:00)
[2018-02-20] MEDS: CARVEDILOL 3.125 MG TABLET PO SCH ×2 (09:36→20:41)
[2018-02-20] MEDS: LACTULOSE 20 GM/30 ML UDCUP PO SCH (14:44)
[2018-02-20] MEDS: PIOGLITAZONE 15 MG TABLET PO SCH (14:44)
[2018-02-20] MEDS: CALCIUM (CITRATE)/VITAMIN D 200 MG-125 UNIT TABLET PO SCH ×2 (14:45→20:40)
[2018-02-20] MEDS: sitaGLIPtin 100 MG TABLET PO SCH (14:45)
[2018-02-20] MEDS: DOCUSATE SODIUM 100 MG CAPSULE PO SCH ×2 (14:45→20:41)
[2018-02-20] MEDS: ENOXAPARIN 40 MG/0.4 ML SYRINGE SUBCUT SCH (14:46)
[2018-02-20] MEDS: POTASSIUM CHLORIDE 20 MEQ TABLET PO SCH (14:46)
[2018-02-20] MEDS: HYOSCYAMINE 0.125 MG TABLET PO SCH ×2 (14:46→20:40)
[2018-02-20] MEDS: glipiZIDE 10 MG TABLET PO SCH (14:46)
[2018-02-20] MEDS: MAGNESIUM OXIDE 400 MG TABLET PO SCH ×2 (14:47→20:40)
[2018-02-20] MEDS: ASCORBIC ACID 500 MG TABLET PO SCH ×2 (14:47→20:40)
[2018-02-20] MEDS: FAMOTIDINE 20 MG TABLET PO SCH ×2 (14:47→20:39)
[2018-02-20] MEDS: GABAPENTIN 300 MG CAPSULE PO SCH ×2 (14:47→20:40)
[2018-02-20] MEDS: ASPIRIN EC 325 MG TABLET PO SCH (14:47)
[2018-02-20] MEDS: SODIUM CHLORIDE 0.9% 1,000 ML IV SCH (14:49)
[2018-02-20 15:00] LABS: % Iron Saturation 30.9 % (18-50); Ferritin 69.7 ng/ml (8-252)
[2018-02-20] MEDS: amLODIPine 10 MG TABLET PO SCH (16:32)
[2018-02-20] MEDS: PANTOPRAZOLE 40 MG VIAL IV SCH (16:34)
[2018-02-20] MEDS: PRAVASTATIN 40 MG TABLET PO SCH (20:41)
[2018-02-21] MEDS: INSULIN REGULAR 100 UNIT/ML SUBCUT SCH ×2 (00:55→07:20)
[2018-02-21] MEDS: metroNIDAZOLE INJ 500 MG in PREMIX 1 EACH IV SCH ×2 (01:05→10:11)
[2018-02-21] MEDS: SODIUM CHLORIDE 0.9% 1,000 ML IV SCH ×2 (02:05→10:12)
[2018-02-21] MEDS: PIPERACILLIN/TAZOBACTAM 3,375 MG in SODIUM CHLORIDE 0.9% 100 ML IV SCH (05:22)
[2018-02-21 08:11] VITALS: BP 137/68
[2018-02-21] MEDS ORDERED: POLYETHYLENE GLYCOL POWDER 17 GM PACK PO SCH (09:00)
[2018-02-21] MEDS ORDERED: HYOSCYAMINE 0.125 MG TABLET PO SCH (09:00)
[2018-02-21] MEDS: PIOGLITAZONE 15 MG TABLET PO SCH (09:54)
[2018-02-21] MEDS: sitaGLIPtin 100 MG TABLET PO SCH (09:55)
[2018-02-21] MEDS: ASPIRIN EC 325 MG TABLET PO SCH (09:55)
[2018-02-21] MEDS: CALCIUM (CITRATE)/VITAMIN D 200 MG-125 UNIT TABLET PO SCH (09:55)
[2018-02-21] MEDS: POTASSIUM CHLORIDE 20 MEQ TABLET PO SCH (09:55)
[2018-02-21] MEDS: DOCUSATE SODIUM 100 MG CAPSULE PO SCH (09:57)
[2018-02-21] MEDS: ASCORBIC ACID 500 MG TABLET PO SCH (09:57)
[2018-02-21] MEDS: glipiZIDE 10 MG TABLET PO SCH (09:59)
[2018-02-21] MEDS: GABAPENTIN 300 MG CAPSULE PO SCH (09:59)
[2018-02-21] MEDS: MAGNESIUM OXIDE 400 MG TABLET PO SCH (09:59)
[2018-02-21] MEDS: ENOXAPARIN 40 MG/0.4 ML SYRINGE SUBCUT SCH (10:00)
[2018-02-21] MEDS: CARVEDILOL 3.125 MG TABLET PO SCH (10:00)
[2018-02-21] MEDS: FAMOTIDINE 20 MG TABLET PO SCH (10:00)
[2018-02-21] MEDS: PANTOPRAZOLE 40 MG VIAL IV SCH (10:00)
[2018-02-21] MEDS: amLODIPine 10 MG TABLET PO SCH (10:00)
[2018-02-21] MEDS: LACTULOSE 20 GM/30 ML UDCUP PO SCH (10:11)
== END 2018-02-21 10:26 | disposition home or self-care (01) | DRG 392 ==
LOC: N.ED 23:05 → N.EDINP 02-18 03:14 → N.2E 02-18 04:03
PROVIDERS: ADMIT Family Medicine; ATTEND Family Medicine

== ENCOUNTER 2019-10-05 12:40 | Inpatient (IN) ==
[2019-10-05 13:21] LABS: Basophils % 0.3 % (0.0-0.8); Eosinophils # 0.2 10*3/uL (0.0-0.87); Eosinophils % 1.9 % (0.00-10.9); Hematocrit 40.3 VOL% (35.7-47.0); Hemoglobin 12.5 GM/DL (12.0-16.0); Immature Granulocytes % 0.5 %; Immature Granulocytes Absolute 0.04 #; Lymphocytes # 2.1 10*3/uL (1.4-4.0); Lymphocytes % 23.4 % (21.3-54.2); Mean Corpuscular Volume 84.3 FL (87-102); Mean Platelet Volume 9.1 FL (9.6-12.0); Monocytes % 4.1 % (1.7-12.7); Neutrophils % 69.8 % (38.7-73.9); Platelet Count 343 T/CUMM (130-400); Red Blood Count 4.78 MC/CUMM (3.8-5.5); Red Cell Distribution Width 14.9 % (9.3-17.3); White Blood Count 8.9 T/CUMM (4-12)
[2019-10-05 13:29] LABS: INR 0.9; Partial Thromboplastin Time 29.9 SECS (20.8-36.0)
[2019-10-05 13:34] LABS: Albumin 4.2 G/DL (3.4-5.0); Bilirubin,Total 0.9 MG/DL (0.2-1.0); Calcium 9.4 MG/DL (8.5-10.1); Osmolality,Calculated 279.7 MOS/KG (273-304); Total Protein 8.3 G/DL (6.4-8.3)
[2019-10-05] MEDS ORDERED: ASPIRIN 325 MG TABLET PO STA (13:52)
[2019-10-05] MEDS ORDERED: ONDANSETRON 4 MG/2 ML VIAL IV PRN (14:13)
[2019-10-05] MEDS ORDERED: NALOXONE 0.4 MG/ML VIAL IV PRN (14:13)
[2019-10-05] MEDS ORDERED: PROMETHAZINE 25 MG/1 ML VIAL IM PRN (14:13)
[2019-10-05] MEDS: SODIUM CHLORIDE 0.9% 1,000 ML IV SCH (15:25)
[2019-10-05] MEDS: ENOXAPARIN 40 MG/0.4 ML SYRINGE SUBCUT SCH (21:00)
[2019-10-05] MEDS: DOCUSATE SODIUM 100 MG CAPSULE PO SCH (21:00)
[2019-10-05] MEDS: ACETAMINOPHEN 325 MG TABLET PO PRN (23:20)
[2019-10-06] MEDS: SODIUM CHLORIDE 0.9% 1,000 ML IV SCH ×3 (00:33→21:32)
[2019-10-06 05:26] LABS: Basophils % 0.4 % (0.0-0.8); Eosinophils # 0.2 10*3/uL (0.0-0.87); Eosinophils % 2.5 % (0.00-10.9); Hematocrit 35.8 VOL% (35.7-47.0); Hemoglobin 11.1 GM/DL (12.0-16.0); Immature Granulocytes % 0.4 %; Immature Granulocytes Absolute 0.03 #; Lymphocytes # 1.8 10*3/uL (1.4-4.0); Lymphocytes % 25.5 % (21.3-54.2); Mean Corpuscular Volume 83.3 FL (87-102); Mean Platelet Volume 9.3 FL (9.6-12.0); Monocytes % 6.4 % (1.7-12.7); Neutrophils % 64.8 % (38.7-73.9); Platelet Count 302 T/CUMM (130-400); White Blood Count 6.9 T/CUMM (4-12)
[2019-10-06 05:45] LABS: Albumin 3.3 G/DL (3.4-5.0); Bilirubin,Total 1.3 MG/DL (0.2-1.0); Calcium 8.6 MG/DL (8.5-10.1); Osmolality,Calculated 280.4 MOS/KG (273-304); Total Protein 7.2 G/DL (6.4-8.3)
[2019-10-06] MEDS: PANTOPRAZOLE 40 MG TABLET PO SCH (08:54)
[2019-10-06] MEDS: DOCUSATE SODIUM 100 MG CAPSULE PO SCH ×2 (08:54→21:13)
[2019-10-06] MEDS ORDERED: ALBUTEROL/IPRATROPIUM 3 ML NEB RESP TX PRN (13:07)
[2019-10-06] MEDS ORDERED: NITROGLYCERIN SL 0.4 MG TABLET SL PRN (13:07)
[2019-10-06] MEDS ORDERED: DICYCLOMINE 10 MG CAPSULE PO PRN (13:07)
[2019-10-06] MEDS: INSULIN LISPRO 100 UNIT/ML SUBCUT SCH (17:28)
[2019-10-06] MEDS: ENOXAPARIN 40 MG/0.4 ML SYRINGE SUBCUT SCH (21:12)
[2019-10-06] MEDS: cilostazoL 50 MG TABLET PO SCH (21:13)
[2019-10-06] MEDS: TICAGRELOR 90 MG TABLET PO SCH (21:13)
[2019-10-06] MEDS: GABAPENTIN 300 MG CAPSULE PO SCH (21:13)
[2019-10-06] MEDS: MAGNESIUM OXIDE 400 MG TABLET PO SCH (21:13)
[2019-10-06] MEDS: SIMVASTATIN 20 MG TABLET PO SCH (21:14)
[2019-10-06] MEDS: amLODIPine 10 MG TABLET PO SCH (21:14)
[2019-10-07] MEDS: SODIUM CHLORIDE 0.9% 1,000 ML IV SCH (00:56)
[2019-10-07 05:36] LABS: Calcium 8.7 MG/DL (8.5-10.1); Osmolality,Calculated 281.3 MOS/KG (273-304)
[2019-10-07] MEDS: BISOPROLOL 5 MG TABLET PO SCH (09:05)
[2019-10-07] MEDS: DOCUSATE SODIUM 100 MG CAPSULE PO SCH ×2 (09:05→22:18)
[2019-10-07] MEDS: MAGNESIUM OXIDE 400 MG TABLET PO SCH ×2 (09:05→22:18)
[2019-10-07] MEDS: cilostazoL 50 MG TABLET PO SCH ×2 (09:06→22:18)
[2019-10-07] MEDS: POTASSIUM CHLORIDE 20 MEQ TABLET PO SCH (09:07)
[2019-10-07] MEDS: TICAGRELOR 90 MG TABLET PO SCH ×2 (09:07→22:19)
[2019-10-07] MEDS: PANTOPRAZOLE 40 MG TABLET PO SCH (09:07)
[2019-10-07] MEDS: FUROSEMIDE 20 MG TABLET PO SCH (09:07)
[2019-10-07] MEDS: GABAPENTIN 300 MG CAPSULE PO SCH ×2 (09:07→22:18)
[2019-10-07] MEDS: ASPIRIN CHEW 81 MG TABLET PO SCH (09:11)
[2019-10-07] MEDS: ACETAMINOPHEN 325 MG TABLET PO PRN (16:17)
[2019-10-07] MEDS: INSULIN LISPRO 100 UNIT/ML SUBCUT SCH (17:15)
[2019-10-07] MEDS: ENOXAPARIN 40 MG/0.4 ML SYRINGE SUBCUT SCH (22:17)
[2019-10-07] MEDS: amLODIPine 10 MG TABLET PO SCH (22:18)
[2019-10-07] MEDS: SIMVASTATIN 20 MG TABLET PO SCH (22:18)
[2019-10-08 08:46] LABS: Basophils % 0.6 % (0.0-0.8); Eosinophils # 0.2 10*3/uL (0.0-0.87); Eosinophils % 2.8 % (0.00-10.9); Hematocrit 37.5 VOL% (35.7-47.0); Hemoglobin 11.4 GM/DL (12.0-16.0); Immature Granulocytes % 0.6 %; Immature Granulocytes Absolute 0.04 #; Lymphocytes % 28.6 % (21.3-54.2); Mean Corpuscular HGB Conc 30.4 GM/DL (32-36); Mean Platelet Volume 9.1 FL (9.6-12.0); Neutrophils % 61.4 % (38.7-73.9); Platelet Count 292 T/CUMM (130-400); Red Blood Count 4.41 MC/CUMM (3.8-5.5); White Blood Count 6.8 T/CUMM (4-12)
[2019-10-08] MEDS ORDERED: DIAZEPAM 5 MG TABLET PO ONE (09:14)
[2019-10-08] MEDS ORDERED: MAGNESIUM SULF RIDER 2 GM in PREMIX 1 EACH IV PRN (09:14)
[2019-10-08] MEDS ORDERED: diphenhydrAMINE CAP 25 MG CAPSULE PO ONE (09:14)
[2019-10-08] MEDS ORDERED: POTASSIUM CHLORIDE RIDER 10 MEQ in PREMIX 1 EACH IV PRN (09:14)
[2019-10-08] MEDS ORDERED: SODIUM CHLORIDE 0.9% 1,000 ML IV SCH (09:15)
[2019-10-08 09:16] LABS: Calcium 9.1 MG/DL (8.5-10.1); Osmolality,Calculated 283.5 MOS/KG (273-304)
[2019-10-08] MEDS: BISOPROLOL 5 MG TABLET PO SCH (09:17)
[2019-10-08] MEDS: ASPIRIN CHEW 81 MG TABLET PO SCH (09:23)
[2019-10-08] MEDS: TICAGRELOR 90 MG TABLET PO SCH ×2 (09:23→21:46)
[2019-10-08] MEDS ORDERED: LIDOCAINE 1% 20 ML VIAL ONE (14:01)
[2019-10-08] MEDS ORDERED: MIDAZOLAM 2 MG/2 ML VIAL ONE (14:06)
[2019-10-08] MEDS ORDERED: fentaNYL 100 MCG/2 ML VIAL ONE (14:07)
[2019-10-08] MEDS ORDERED: HEPARIN 5,000 UNIT/1 ML VIAL ONE (14:29)
[2019-10-08] MEDS ORDERED: TIROFIBAN 5,000 MCG/100 ML PREMIX IV ONE (15:11)
[2019-10-08] MEDS: TIROFIBAN 5,000 MCG/100 ML PREMIX IV SCH ×2 (15:19→21:52)
[2019-10-08 16:27] LABS: Apearance,Urine CLEAR (Clear); Bacteria,Urine Occasional /HPF (Few); Bilirubin,Urine Negative (Negative); Blood, Urine Small mg/dL (Negative); Glucose,Urine (UA) Negative (Negative); Ketones,Urine Negative (Negative); Nitrite,Urine Negative (Negative); Protein,Urine Negative; RBC,Urine 3 /HPF (0-4); Squamous Epithelial Cell,Urine Occasional /HPF (0-10); Urine Color Colorless (Yellow); Urine Specific Gravity 1.033 (1.001-1.035); Urine Urobilinogen < 2.0 EU/DL (0.2-1.0); WBC,Urine <1 /HPF (0-6)
[2019-10-08] MEDS ORDERED: GABAPENTIN 300 MG CAPSULE PO ONE (16:33)
[2019-10-08] MEDS ORDERED: BISOPROLOL 5 MG TABLET PO ONE (16:35)
[2019-10-08] MEDS: MORPHINE 4 MG/1 ML VIAL IV PRN (16:53)
[2019-10-08] MEDS ORDERED: BISOPROLOL 5 MG TABLET PO SCH (17:00)
[2019-10-08] MEDS: DOCUSATE SODIUM 100 MG CAPSULE PO SCH ×2 (17:13→21:46)
[2019-10-08] MEDS: POTASSIUM CHLORIDE 20 MEQ TABLET PO SCH (17:14)
[2019-10-08] MEDS: MAGNESIUM OXIDE 400 MG TABLET PO SCH ×2 (17:14→21:45)
[2019-10-08] MEDS: FUROSEMIDE 20 MG TABLET PO SCH (17:14)
[2019-10-08] MEDS: GABAPENTIN 300 MG CAPSULE PO SCH ×2 (17:15→21:44)
[2019-10-08] MEDS: PANTOPRAZOLE 40 MG TABLET PO SCH (17:15)
[2019-10-08] MEDS: cilostazoL 50 MG TABLET PO SCH ×2 (17:15→21:46)
[2019-10-08] MEDS: VENLAFAXINE 37.5 MG TABLET PO SCH ×2 (17:26→21:45)
[2019-10-08] MEDS: INSULIN LISPRO 100 UNIT/ML SUBCUT SCH (20:09)
[2019-10-08] MEDS: amLODIPine 10 MG TABLET PO SCH (21:45)
[2019-10-08] MEDS: SIMVASTATIN 20 MG TABLET PO SCH (21:46)
[2019-10-09 05:07] LABS: Basophils % 0.2 % (0.0-0.8); Eosinophils # 0.1 10*3/uL (0.0-0.87); Eosinophils % 1.2 % (0.00-10.9); Hematocrit 33.8 VOL% (35.7-47.0); Hemoglobin 10.5 GM/DL (12.0-16.0); Immature Granulocytes % 0.4 %; Immature Granulocytes Absolute 0.03 #; Lymphocytes # 1.4 10*3/uL (1.4-4.0); Lymphocytes % 16.4 % (21.3-54.2); Mean Corpuscular HGB Conc 31.1 GM/DL (32-36); Mean Platelet Volume 9.4 FL (9.6-12.0); Monocytes % 5.8 % (1.7-12.7); Platelet Count 289 T/CUMM (130-400); Red Blood Count 4.07 MC/CUMM (3.8-5.5); Red Cell Distribution Width 14.7 % (9.3-17.3); White Blood Count 8.2 T/CUMM (4-12)
[2019-10-09 05:45] LABS: Calcium 8.8 MG/DL (8.5-10.1); Osmolality,Calculated 278.8 MOS/KG (273-304)
[2019-10-09 05:50] LABS: Albumin 3.3 G/DL (3.4-5.0); Calcium 8.7 MG/DL (8.5-10.1); Osmolality,Calculated 279.7 MOS/KG (273-304); Total Protein 6.4 G/DL (6.4-8.3)
[2019-10-09] MEDS: MORPHINE 4 MG/1 ML VIAL IV PRN (06:36)
[2019-10-09] MEDS: ASPIRIN CHEW 81 MG TABLET PO SCH (08:52)
[2019-10-09] MEDS: FUROSEMIDE 20 MG TABLET PO SCH (08:52)
[2019-10-09] MEDS: cilostazoL 50 MG TABLET PO SCH (08:52)
[2019-10-09] MEDS: VENLAFAXINE 37.5 MG TABLET PO SCH (08:52)
[2019-10-09] MEDS: MAGNESIUM OXIDE 400 MG TABLET PO SCH (08:52)
[2019-10-09] MEDS: DOCUSATE SODIUM 100 MG CAPSULE PO SCH (08:52)
[2019-10-09] MEDS: PANTOPRAZOLE 40 MG TABLET PO SCH (08:52)
[2019-10-09] MEDS: TICAGRELOR 90 MG TABLET PO SCH (08:52)
[2019-10-09] MEDS: GABAPENTIN 300 MG CAPSULE PO SCH (08:53)
[2019-10-09] MEDS: POTASSIUM CHLORIDE 20 MEQ TABLET PO SCH (08:53)
[2019-10-09] MEDS ORDERED: BISOPROLOL 5 MG TABLET PO SCH ×2 (09:00→21:00)
[2019-10-09] MEDS ORDERED: CLOPIDOGREL 75 MG TABLET PO SCH (09:54)
[2019-10-09 11:39] VITALS: BP 117/57
== END 2019-10-09 15:31 | disposition home or self-care (01) | DRG 287 ==
LOC: N.EDINP 12:40 → N.ED 12:40 → N.EDINP 16:50 → N.2W 17:13 → N.TELES 10-06 14:32 → N.TELEN 10-06 14:47
PROVIDERS: ADMIT Family Medicine; ATTEND Family Medicine